=== PATIENT | female | born 1930 | race Hispanic/Latino ===

== ENCOUNTER 2016-08-21 10:12 | Inpatient (IN) | payer MEDICARE, BC ==
--- NOTE | 2016-08-21 10:49 | ERNOTE ---
Medical Problem HPI - General Chief Complaint: Fever Time Seen by Provider: 08/21/16 10:41 Source: [facility] notes reviewed, [facility] Exam Limitations: physical impairment, dementia - Immun/Allergies/Home Medications Immunizations: IMMUNIZATION HX Immunizations Up to Date Yes History of Influenza Vaccine No Hx Pneumococcal Vaccination No Allergies/Adverse Reactions: Allergies No Known Allergies Allergy (Verified 08/21/16 10:18) Home Medications: HOME MEDICATIONS Atropine Sulfate [Atropine 1% Ophthalmic Solution] 4 drop SL Q4H PRN 05/20/13 [ Last Taken 08/21/16] Divalproex Sodium [Depakote] 500 mg PO DAILY 05/20/13 [Last Taken 08/21/16] Phenytoin [Dilantin Suspension] 125 mg PO BID 05/20/13 [Last Taken 08/21/16] Quetiapine Fumarate [Seroquel] 12.5 mg PO HS 05/20/13 [Last Taken 08/21/16] Spironolactone 25 mg PO BID 05/20/13 [Last Taken 08/21/16] Atropine Sulfate [Atropine 1% Ophthalmic Solution] 4 drop SL AC 02/03/16 [Last Taken 08/21/16] Acetaminophen [Tylenol] 500 mg PO Q6H PRN 08/21/16 [Last Taken 08/21/16] Aspirin [Aspirin EC] 81 mg PO DAILY 08/21/16 [Last Taken 08/21/16] Omeprazole [Prilosec] 20 mg PO DAILY 08/21/16 [Last Taken 08/21/16] Simvastatin 20 mg PO DAILY 08/21/16 [Last Taken 08/21/16] Ursodiol [Actigall] 300 mg PO BID 08/21/16 [Last Taken 08/21/16] - History of Present History Narrative: snf reports the patient has increased tempurature with fever of 102.3 last night. Increased lung sounds Timing: getting worse Severity: moderate Review of Systems - Narrative Narrative: Pt non-verbal no additional information available - Patient's Past Medical History Patient History - Medical: Alzheimer's Disease, Dementia, Seizures, Other Patient History - Cardiac/Respiratory: CVA/Stroke, Hypertension, Hyperlipidemia , Pneumonia, TIA Patient History - Cancer: No Hx of Cancer Patient History - Surgical Procedures: No surgical history Patient History - Other: None - Family History Unknown Family History - Medical: History Unknown - Social History [facility] Situations: [facility] Abuse History: No History of abuse Psych History: No pertinent hx Alcohol Use: none Drug Use: none - Immunizations Immunizations Up to Date: Yes Hx Pneumococcal Vaccination: No History of Influenza Vaccine: No Physical Exam - Physical Exam General Appearance: Present: wd/wn, alert - but non verbal Eye Exam: Normal inspection: bilateral Ears, Nose, Throat: Present: other Respiratory: Present: no respiratory distress, rales, rhonchi - a lot of upper airway sounds due to difficulty handling secretions (chronic) Cardiovascular/Chest: Present: regular rate, rhythm, no murmur, normal peripheral pulses Gastrointestinal/Abdominal: Present: normal bowel sounds, nontender, nondistended, soft Extremity Exam: Present: normal inspection, no edema Neurological Exam: Present: alert - but non verbal Skin Exam: Present: normal color, warm/dry ED Progress - Results and Orders Patient's Lab Results:: I have reviewed the patient's lab results. Results and Orders: Laboratory Tests 08/21/16 08/21/16 08/21/16 11:00 11:00 11:00 WBC 50.8 H Hgb 10.9 L Hct 31.5 L Plt Count 452 H Sodium 130 L Potassium 4.0 Chloride 96 L Carbon Dioxide 18.7 L Anion Gap 19.3 H BUN 14 Creatinine 1.22 Random Glucose 258 H Lactic Acid, Venous 6.4 H* Calcium 8.3 Calcium Adj for Albumin 9.4 Total Bilirubin 1.0 AST 53 H ALT 58 Alkaline Phosphatase 508 H Total Protein 6.6 Albumin 2.2 L - Vital Signs Patient's Vital Signs:: I have reviewed the patient's vital signs. Vital Signs: Vital Signs 08/21/16 10:13 Temperature 36.6 C Pulse Rate 117 H Respiratory 34 H Rate Blood Pressure 119/71 O2 Sat by Pulse 96 Oximetry - X-Ray X-Ray #1 X-Ray: chest Interpretation: Reviewed by me X-ray Comments: Heart size and vascularity appear within normal limits. Lung [place] show no focal infiltrates or effusions. There are atherosclerotic calcifications. - Progress/Reassessment Chief Complaint: Fever Progress Note-Subjective: 08/21/16 12:25 Pathologist report of peripheral smear: Marked leukocytosis with left shift. Favor leukemoid reaction but myeloproliferative disorder should be ruled out if leukocytosis is not resolved after treatment of infectious processes. Departure - Departure Clinical Impression: Sepsis secondary to UTI UTI (urinary tract infection) Qualifiers: Urinary tract infection type: acute cystitis Hematuria presence: with hematuria Qualified Code(s): N30.01 - Acute cystitis with hematuria Disposition: [facility] Condition: Fair
[2016-08-21 11:07] LABS: Hematocrit 31.5 % (37.0-47.0); Hemoglobin 10.9 gm/dL (12.5-16.0); Mean Cell Volume 94.9 fl (78-100); Mean Corpuscular Hemoglobin 32.8 pg (27-31); Mean Corpuscular Hgb Conc 34.6 g/dl (32-36); Mean Platelet Volume 8.9 fl (6.0-9.5); Platelet Count 452 K/mm3 (150-450); Red Blood Count 3.32 M/mm3 (4.2-5.4); Red Cell Distribution Width 12.4 % (11.5-14.0); White Blood Count 50.8 K/mm3 (4.0-10.5)
[2016-08-21 11:09] LABS: Total Cells Counted 100
--- OUTSIDE RECORDS SUMMARY | 2016-08-21 11:09 | XMS REPORT | Continuity of Care Document ---
:1930 Author Organization [facility] ([facility]) Address [address] [place] [address] Phone [phone] Care Team Providers Name Role Phone Estevan Luz Primary Care Provider [phone] Source Comments This disclosure is being made pursuant to the Care Everywhere program, applicable federal and state laws, and may not contain all informaitonavailable regarding this patient.[facility] ([facility]) Active Allergies and Adverse Reactions No Known Allergies Current Medications Prescription Sig. Disp. Refills Start Date End Date Status QUEtiapine (SEROQUEL) Take 12.5 mg by Active 25 mg tablet mouth at bedtime. omeprazole (PRILOSEC) Take 20 mg by Active 20 mg extended release mouth daily. capsule spironolactone Take 25 mg by Active (ALDACTONE) 25 mg mouth 2 times tablet daily. simvastatin (ZOCOR) 20 Take 20 mg by Active mg tablet mouth at bedtime. aspirin 81 mg EC tablet Take 81 mg by Active mouth daily. divalproex 125 mg Take 500 mg by Active sprinkle capsule mouth daily. atropine 1 % ophthalmic Place 4 Drops Active solution under the tongue 3 times daily. phenytoin 25 mg/mL Take 125 mg by Active suspension mouth 2 times daily. acetaminophen 500 mg Take 500 mg by Active tablet mouth every 6 hours as needed for Fever. ursodiol 300 mg capsule Take 1 capsule 60 capsule 11 07/03/2016 Active (300 mg total) by mouth 2 times daily. Active Problems Patient Care Coordination Note GOALS OF CARE AND TREATMENT PREFERENCES Diagnosis: sepsis Prognosis: Unknown at this time, critically ill Goal(s) of Care: comfort and relief of symptoms and live longer Is the patient an inpatient? Yes. How did the team arrive at the current code status? 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 09/08/2013 Essential hypertension 09/08/2013 Abnormal liver function tests 09/08/2013 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 S/P total hysterectomy and BSO (bilateral salpingo-oophorectomy) 09/08/2013 Overview: 1972 S/P ERCP 09/08/2013 Overview: Mar 2010; October 2010; May 2013 Elevated LFTs 10/25/2010 Resolved Problems Problem Noted Date Resolved Date Hypokalemia 05/23/2013 05/25/2013 Cholangitis 05/22/2013 05/25/2013 UTI (urinary tract infection) 05/21/2013 05/25/2013 Bacteremia 05/21/2013 05/25/2013 Sepsis(995.91) 05/21/2013 05/25/2013 Most Recent Encounters Date Type Specialty Providers Description 07/13/2016 Orders/Notes Med GI/Hepatology Kenneth White Dx: Elevated LFTs MD Kang (Primary Dx) 07/03/2016 Office Visit Med GI/Hepatology Kenneth White Dx: Gallstones MD Kang (Primary Dx) 07/02/2016 Orders/Notes Med GI/Hepatology Kenneth White Dx: Elevated LFTs MD Kagn (Primary Dx) 06/29/2016 Telephone Med GI/Hepatology Randi Giordano Chief Comp: Scheduling 06/27/2016 Telephone Med GI/Hepatology Kenneth White Chief Comp: Follow-up MD Kang Social History Tobacco Use Types Packs/Day Years Used Date Never Smoker Smokeless Tobacco: Never Used Alcohol Use Drinks/Week oz/Week Comments No Last Filed Vital Signs Vital Sign Reading Time Taken Blood Pressure 152/65 07/03/2016 10:13 AM 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 Pulse 64 07/03/2016 10:13 AM 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 Temperature 36.2 C (97.2 F) 07/03/2016 10:13 AM 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 Respiratory Rate 20 05/25/2013 12:00 PM 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 Height 1.575 m (5' 2") 07/03/2016 10:13 AM 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 Weight 67.132 kg (148 lb) 09/08/2013 3:45 PM CDT Body Mass Index 27.06 09/08/2013 3:45 PM CDT Oxygen Saturation 98% 05/25/2013 8:07 AM 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 Plan of Care Health Maintenance Due Date Last Done Comments Hepatitis B Vaccine (1 of 3 - Primary Series) 1930 Tdap Vaccine 01/07/1939 Lipid Disorder Screening 01/07/1946 Td Vaccine 01/07/1946 Zoster Vaccine 1988 Pneumococcal Vaccine (1 of 2 - PCV13) 01/07/1993 Influenza Vaccine: Seasonal (#1) 01/02/2016 Results from Last 3 Months DIFFERENTIAL (07/03/2016 9:50 AM) Component Value Range % Neutrophils-Auto Diff 73.8 % Neutrophils-Auto Diff 5910 4126-6769 /MM3 % Lymphocytes-Auto Diff 10.5 % Lymphocytes-Auto Diff 840(L) 875-3300 /MM3 % Monocytes-Auto Diff 13.3 % Monocytes-Auto Diff 1070(H) 130-860 /MM3 % Eosinophils-Auto Diff 2.0 % Eosinophils-Auto Diff 160 40-390 /MM3 % Basophils 0.2 % Basophils-Auto Diff 20 10-136 /MM3 % Immature Granulocytes-Auto Diff 0.2 % Immature Granulocytes-Auto Diff 20 /MM3 Specimen Whole Blood CBC (COMPLETE BLOOD COUNT) (07/03/2016 9:50 AM) Component Value Range WBC Count 8.0 3.7-10.5 K/MM3 RBC Count 4.14 4.00-5.20 M/MM3 Hemoglobin 13.1 11.9-15.5 g/dL Hematocrit 39 35-47 % MCV (Mean Corpuscular Volume) 94 82-99 FL MCH (Mean Corpuscular Hemoglobin) 32 25-35 PG MCHC (Mean Corpuscular Hemoglobin Concentration) 34 32-36 % Platelet Count 303 150-400 K/MM3 MPV (Mean Platelet Volume) 9.1(L) 9.4-12.3 FL RBC Dist Width-STD 43.9 36.4-46.3 FL RBC Distrib Width 12.9 9.0-14.5 % Nucleated RBC 0 /100 WBC Specimen Whole Blood GAMMA GLUTAMYLTRANSPEPTIDASE (07/03/2016 9:50 AM) Component Value Range GGT 541(H) 5-36 U/L Specimen Blood HEPATIC FUNCTION PANEL (07/03/2016 9:50 AM) Component Value Range Albumin 3.2(L) 3.4-4.8 g/dL ALP 193(H) 35-104 U/L Bilirubin Total 0.2 <=1.2 mg/dL Bilirubin, Direct <0.2 0.0-0.2 mg/dL AST 22Comment: 0-32 U/L Adult reference ranges updated on 04/28/13 at 830am ALT 23Comment: 0-33 U/L The upper limit of normal for alanine aminotransferase (ALT) reference ranges for adults is controversial with some authorities recommending limit as low as 30 U/L for males and 19 U/L for females. Th ere is increased incidence of subclinical liver disease (e.g., early steatohepatitis) in patients with ALT values in the range of 31-41 U/L for males and 20-33 U/L for females. ALT values should alway s be interpreted in conjunction with clinical history, physical examination findings, and, if applicable, data from other diagnostic tests. Total Protein 6.7 6.0-8.0 g/dL Specimen Blood CBC WITH DIFFERENTIAL (07/03/2016 9:50 AM) Specimen Whole Blood Narrative The following orders were created for panel order CBC WITH DIFFERENTIAL. Procedure Abnormality Status --------- ------ CBC (COMPLETE BLOOD COUNT)[[id number]] AbnormalFinal result DIFFERENTIAL[[id number]] AbnormalFinal result Please view results for these tests on the individual orders.
[2016-08-21 11:21] LABS: Band 38 % (0-2.0); Immature Granulocyte 6 (0-1); Lymphocyte 3 % (20-51); Monocyte 2 % (0-9); Neutrophil 51 % (42-75); Neutrophil # 25.9 K/mm3 (1.3-6.0)
[2016-08-21 11:22] LABS: Dohle Bodies 2+; Macrocytosis 2+; Platelet Estimate Normal (NORMAL); Toxic Granulation 1+
[2016-08-21 11:26] LABS: Albumin * 2.2 gm/dl (3.4-5.0); Anion Gap 19.3 mmol/L (6.8-13.8); BUN/Creatinine Ratio 11.5 (9.0-21.6); Ca. Corrected For Albumin 9.4 mg/dL (8.4-10.2); Calcium * 8.3 mg/dL (7.9-10.9); Carbon Dioxide 18.7 mmol/L (24-32.6); Total Protein 6.6 gm/dL (6.2-8.2)
[2016-08-21] MEDS: NORMAL SALINE 1,000 ML IV PRN ×3 (12:10→15:24)
--- NOTE | 2016-08-21 12:13 | PATHPSR ---
PHYSICIAN: Kishore Forrester DO LAB#: [id number] SPECIMEN DATE: 08/21/2016 CLINICAL INFORMATION: The patient is an 86-year-old woman [place] resident who presented with fever to emergency room. The patient institutionalized due to multi-infarct dementia versus Alzheimer disease. She has a history of bile duct encasement and is being seen at [facility] last visit 07/03/2016, recurrent pneumonia and history of inflammatory polyp of the ampulla Vater. Peripheral smear is performed due to elevated WBC. WBC was 5.7 K/mm3 on 07/23/2016 and is elevated to 50.8 K/mm3. CBC: WBC 50.8 K/mm3, hemoglobin 10.9 gm/dl, hematocrit 31.5 %, MCV is 94.9 fl, MCH is 32.8 pg, MCHC is 34.6 g/dl, Platelet count 452,000. Manual differential: Neutrophils 51 %, bands 38 %, lymphocytes 3 %, monocytes 2 %, immature granulocytes 6 %. RED BLOOD CELLS: 2+ macrocytosis PLATELETS: Platelet clumping WHITE BLOOD CELLS: 2+ toxic vacuolization 1+ toxic granulation 2+ dohle bodies DIAGNOSIS: PERIPHERAL BLOOD SMEAR, REVIEW BY PATHOLOGIST: -MARKED LEUKOCYTOSIS WITH LEFT SHIFT OF GRANULOCYTIC SERIES, SEE COMMENT COMMENT: In view of the clinical history and peripheral smear findings a leukemoid reaction is favored. However if the marked leukocytosis and granulocytosis persists following treatment for an infectious etiology ( elevated procalcitonin 17.45 ng/ml and UTI) further evaluation to exclude a myeloproliferative disorder is suggested. The findings are called to Dr. Forrester on 08/21/2016.
[2016-08-21 12:38] LABS: Urine Bilirubin 3 mg/dl (NEGATIVE); Urine Blood 50 /ul (NEGATIVE); Urine Ketone 5 mg/dL (NEGATIVE); Urine Protein 100 mg/dL (NEGATIVE); Urine Specific Gravity 1.025 SP.GR. (1.005-1.010); Urine Urobilinogen 4 EU/dl (NORMAL); Urine pH 5.5 pH (5.0-7.0)
[2016-08-21 12:46] LABS: Urine Appearance Cloudy; Urine Color Dark Yellow; Urine Nitrite Positive (NEGATIVE)
[2016-08-21 12:47] LABS: Urine Bacteria 3+; Urine Mucus Few - 1+; Urine Renal Epithelial Cell Many - 3+ /hpf
[2016-08-21] MEDS ORDERED: NOREPINEPHRINE BITARTRATE 4 MG in DEXTROSE 5 % IN WATER 496 ML IV PRN ×2 (14:16)
[2016-08-21] MEDS ORDERED: ACETAMINOPHEN 650 MG SUPP.RECT RC PRN (14:28)
[2016-08-21] MEDS ORDERED: SODIUM CHLORIDE IV SCH ×2 (14:30→14:45)
[2016-08-21] MEDS ORDERED: ATROPINE SULFATE 150 DROP BTL SL PRN (14:32)
[2016-08-21] MEDS ORDERED: hydrALAZINE HCL 20 MG/ML VIAL IV PRN (14:44)
[2016-08-21] MEDS ORDERED: METRONIDAZOLE IV SCH (14:45)
[2016-08-21] MEDS ORDERED: ENOXAPARIN SODIUM 40 MG/0.4 ML SYRG SC SCH (15:00)
[2016-08-21] MEDS ORDERED: DEXTROSE 5% IV SCH ×2 (15:30)
[2016-08-21] MEDS ORDERED: NORMAL SALINE IV SCH (15:30)
[2016-08-21] MEDS ORDERED: PHENYTOIN SODIUM IV SCH (15:30)
[2016-08-21] MEDS ORDERED: VALPROIC ACID IV SCH ×2 (15:30)
[2016-08-21] MEDS ORDERED: WATER IV SCH ×2 (15:30)
[2016-08-21] MEDS ORDERED: LEVOFLOXACIN/D5W 750 MG in Premix Bag 1 BAG IV SCH ×2 (15:45→16:15)
[2016-08-21] MEDS ORDERED: PANTOPRAZOLE SODIUM 40 MG in NORMAL SALINE 100 ML IV SCH (16:00)
[2016-08-21] MEDS: MEROPENEM 1 GM in NORMAL SALINE 100 ML IV SCH (17:05)
[2016-08-21] MEDS: ATROPINE SULFATE 150 DROP BTL SL SCH (17:11)
[2016-08-21] MEDS: PHENYTOIN SODIUM IV SCH (17:39)
[2016-08-21] MEDS: NORMAL SALINE IV SCH (17:39)
[2016-08-21] MEDS: WATER IV SCH ×2 (18:21)
[2016-08-21] MEDS: VALPROIC ACID IV SCH ×2 (18:21)
[2016-08-21] MEDS: DEXTROSE 5% IV SCH ×2 (18:21)
[2016-08-21 19:26] LABS: Venous Blood Gas HCO3 20.4 mmol/L (22.0-29.0); Venous Blood Gas pH 7.41 (7.32-7.43)
--- NOTE | 2016-08-21 19:59 | HP ---
Chief Complaint - Chief Complaint Date of Service: 08/21/16 Time of Service: 14:05 Chief Complaint: fever History of Present Illness: Bhavana is an 86 year old female who presented to the ER from the [facility] with a fever overnight of 102.3 and "increased lung sounds". pt is non-verbal and has been for the past 10 years. PMH is significant for alzheimer's disease, seizures, cva, hypertension, hyperlipidemia, pneumonia, tia. Patient has a chronic history of difficulty handling her oral secretions and has been admitted for aspiration pneumonia in the past. No family is available during patient assessment. I called Prakash Bullock (MARILIN) after patient assessment and updated him on patient's condition. I also verified code status with him and he informed me over the phone that he did want "a tube down her throat and a machine to help her breathe" if she develops respiratory failure and "chest compressions" if her heart stops beating. I also made sure Prakash understood that even if she is made a DNR we could continue to treat her infection. Prakash verbalized his understanding but again indicated that he wished for her to remain a full code. Patient has dysphagis at baseline and is on a pureed diet at the [place]. Work up in the emergency room revealed marked leukocytosis with wbc at 50,000 with 38 bands, lactic acidosis at 6.4 with procalcitonin at 17.45. UA consistent with infection. chest xray showed no acute abnormalities. iv rocephin was given in the ER. peripheral blood smear showed 2+macrocytosis, platelet clumping, marked leukocytosis with left shift of granulocytic series, which pathologist believes is a leukemoid reaction but need to rule out chronic myeloid leukemia. - Patient's Past Medical History Patient History - Medical: Alzheimer's Disease, Dementia, Seizures Patient History - Cardiac/Respiratory: CVA/Stroke, Hypertension, Hyperlipidemia , Pneumonia, TIA Patient History - Cancer: No Hx of Cancer Patient History - Surgical Procedures: No surgical history Patient History - Other: None LMP (females 10-50): Menopausal - Family History Unknown Family History - Medical: History Unknown - Social History Living Situations: assisted Abuse History: No History of abuse Psych History: No pertinent hx Smoking Status: Never smoker Have you smoked in the past 12 months: No Alcohol Use: none Drug Use: none - Immunizations Immunizations Up to Date: Yes Hx Pneumococcal Vaccination: No History of Influenza Vaccine: No Review Of Systems (GEN) - Review of Systems Additional Comments: unable to obtain ROS due to patient's condition. Immunizations: IMMUNIZATION HX Immunizations Up to Date Yes History of Influenza Vaccine No Hx Pneumococcal Vaccination No Allergies/Adverse Reactions: Allergies Allergy/AdvReac Type Severity Reaction Status Date / Time No Known Allergies Allergy Verified 08/21/16 10:18 Home Medications: HOME MEDICATIONS Atropine Sulfate [Atropine 1% Ophthalmic Solution] 4 drop SL Q4H PRN 05/20/13 [ Last Taken 08/21/16] Divalproex Sodium [Depakote] 500 mg PO DAILY 05/20/13 [Last Taken 08/21/16] Phenytoin [Dilantin Suspension] 125 mg PO BID 05/20/13 [Last Taken 08/21/16] Quetiapine Fumarate [Seroquel] 12.5 mg PO HS 05/20/13 [Last Taken 08/21/16] Spironolactone 25 mg PO BID 05/20/13 [Last Taken 08/21/16] Atropine Sulfate [Atropine 1% Ophthalmic Solution] 4 drop SL AC 02/03/16 [Last Taken 08/21/16] Acetaminophen [Tylenol] 500 mg PO Q6H PRN 08/21/16 [Last Taken 08/21/16] Aspirin [Aspirin EC] 81 mg PO DAILY 08/21/16 [Last Taken 08/21/16] Omeprazole [Prilosec] 20 mg PO DAILY 08/21/16 [Last Taken 08/21/16] Simvastatin 20 mg PO DAILY 08/21/16 [Last Taken 08/21/16] Ursodiol [Actigall] 300 mg PO BID 08/21/16 [Last Taken 08/21/16] Exam - Exam Vital Signs: Vital Signs - Last Taken Temp 36.8 C 08/21/16 17:22 Pulse 97 08/21/16 18:03 Resp 24 H 08/21/16 17:22 BP 182/84 08/21/16 17:22 Pulse Ox 97 08/21/16 17:22 Constitutional: Present: Moderate distress, Obtunded, Other - unresponsive until arms are extended, at that point pt opens eyes only. non-verbal., Elderly ENT Exam: Present: moist mucous membranes, other - gurgling sounds coming from the mouth, patient drooling out the right side of the mouth Eye Exam: bilateral eye: normal inspection Neck: Present: supple Breasts: Present: Exam deferred Respiratory: Present: chest non-tender, respiratory distress - mild to moderate , rales, rhonchi Cardiovascular/Chest: Present: regular rate, rhythm, no chest tenderness, no JVD , no murmur, tachycardia, edema - +1 lower extremity edema. Peripheral Pulses: carotid (R): 2+, carotid (L): 2+, dorsalis-pedis (R): 2+, dorsalis-pedis (L): 2+, radial (R): 2+, radial (L): 2+ Abdomen: Present: Normal bowel sounds, soft, nontender, nondistended /Rectal: Present: Exam deferred Extremity: Present: lower extremity edema - +1 pitting edema bilat, other - bilat upper extremity stiff flexion - pain with upper arm extension bilat. Skin Exam: Present: warm/dry, no cyanosis, pallor Neurologic: Present: aphasia, other - non-verbal, opens eyes to pain only. Diagnostic Studies: Abnormal Lab Results 08/21/16 08/21/16 08/21/16 Range/Units 13:28 19:21 19:21 pO2 40.7 H (23.3-35.1) mmHg HCO3 20.4 L (22.0-29.0) mmol/L Total CO2 21.4 L (22.0-26.0) mmol/L Base Excess -3.3 L (-2.0-3.0) mmol/L VBG O2 Saturation 77.0 L (94.0-98.0) % Lactic Acid, Venous 5.4 H* 3.8 H* (0.4-2.0) mmol/L Laboratory Results WBC 50.8 K/mm3 (4.0-10.5) H 08/21/16 11:00 RBC 3.32 M/mm3 (4.2-5.4) L 08/21/16 11:00 Hgb 10.9 gm/dL (12.5-16.0) L 08/21/16 11:00 Hct 31.5 % (37.0-47.0) L 08/21/16 11:00 MCV 94.9 fl (78-100) 08/21/16 11:00 MCH 32.8 pg (27-31) H 08/21/16 11:00 MCHC 34.6 g/dl (32-36) 08/21/16 11:00 RDW 12.4 % (11.5-14.0) 08/21/16 11:00 Plt Count 452 K/mm3 (150-450) H 08/21/16 11:00 MPV 8.9 fl (6.0-9.5) 08/21/16 11:00 Neutrophils % (Manual) 51 % (42-75) 08/21/16 11:00 Band Neuts % (Manual) 38 % (0-2.0) H 08/21/16 11:00 Lymphocytes % (Manual) 3 % (20-51) L 08/21/16 11:00 Monocytes % (Manual) 2 % (0-9) 08/21/16 11:00 Immature Granulocytes 6 (0-1) H 08/21/16 11:00 Neutrophils # (Manual) 25.9 K/mm3 (1.3-6.0) H 08/21/16 11:00 Lymphocytes # (Manual) 1.5 k/mm3 (1.5-3.5) 08/21/16 11:00 Monocytes # (Manual) 1.0 k/mm3 (0.0-1.0) 08/21/16 11:00 Toxic Granulation 1+ 08/21/16 11:00 Toxic Vacuolation 2+ 08/21/16 11:00 Dohle Bodies 2+ 08/21/16 11:00 Platelet Estimate Normal (NORMAL) 08/21/16 11:00 Macrocytosis 2+ 08/21/16 11:00 Peripheral Blood Smear Smear sent to path. 08/21/16 11:31 Absolute Retic 0.7100 08/21/16 11:31 Percent Retic 2.3 % (0.4-1.8) H 08/21/16 11:31 Immature Retic Fraction 16.9 % (3.0-15.9) H 08/21/16 11:31 Retic Hgb Content 40.2 pg (29-35) H 08/21/16 11:31 pCO2 33.2 mmHg (32.0-45.0) 08/21/16 19:21 pO2 40.7 mmHg (23.3-35.1) H 08/21/16 19:21 HCO3 20.4 mmol/L (22.0-29.0) L 08/21/16 19:21 Total CO2 21.4 mmol/L (22.0-26.0) L 08/21/16 19:21 Base Excess -3.3 mmol/L (-2.0-3.0) L 08/21/16 19:21 ABG pH 7.41 (7.32-7.43) 08/21/16 19: VBG O2 Saturation 77.0 % (94.0-98.0) L 08/21/16 19:21 Sodium 130 mmol/L (132-142) L 08/21/16 11:00 Plasma Sodium 133 mmol/L (130-142) 08/21/16 11:00 Potassium 4.0 mmol/L (3.4-4.6) 08/21/16 11:00 Chloride 96 mmol/L (97-106) L 08/21/16 11:00 Carbon Dioxide 18.7 mmol/L (24-32.6) L 08/21/16 11:00 Anion Gap 19.3 mmol/L (6.8-13.8) H 08/21/16 11:00 BUN 14 mg/dL (3-23) 08/21/16 11:00 Creatinine 1.22 mg/dL (0.4-1.4) 08/21/16 11:00 Est GFR (Non-Af Amer) 44 mL/min (60-130) L D 08/21/16 11:00 BUN/Creatinine Ratio 11.5 (9.0-21.6) 08/21/16 11:00 Random Glucose 258 mg/dL (70-110) H 08/21/16 11:00 Lactic Acid, Venous 3.8 mmol/L (0.4-2.0) H* 08/21/16 19: Calcium 8.3 mg/dL (7.9-10.9) 08/21/16 11:00 Calcium Adj for Albumin 9.4 mg/dL (8.4-10.2) 08/21/16 11:00 Total Bilirubin 1.0 mg/dL (0.0-1.1) 08/21/16 11:00 AST 53 U/L (0-48) H 08/21/16 11:00 ALT 58 U/L (19-67) 08/21/16 11:00 Alkaline Phosphatase 508 U/L (50-170) H 08/21/16 11:00 Total Protein 6.6 gm/dL (6.2-8.2) 08/21/16 11:00 Albumin 2.2 gm/dl (3.4-5.0) L 08/21/16 11:00 Procalcitonin 17.45 ng/mL (0.05-0.50) H 08/21/16 11:00 Urine Color Dark yellow 08/21/16 12:32 Urine Appearance Cloudy 08/21/16 12:32 Urine pH 5.5 pH (5.0-7.0) 08/21/16 12:32 Ur Specific Marlin 1.025 SP.GR. (1.005-1.010) 08/21/16 12:32 Urine Protein 100 mg/dL (NEGATIVE) H 08/21/16 12:32 Urine Glucose (UA) 100 mg/dL (NEGATIVE) H 08/21/16 12:32 Urine Ketones 5 mg/dL (NEGATIVE) 08/21/16 12:32 Urine Blood 50 /ul (NEGATIVE) H 08/21/16 12:32 Urine Nitrate Positive (NEGATIVE) H 08/21/16 12:32 Urine Bilirubin 3 mg/dl (NEGATIVE) H 08/21/16 12:32 Urine Ictotest Positive (NEGATIVE) H 08/21/16 12:32 Prot Sulfosalicylic Acd 4+ mg/dL (0) H 08/21/16 12:32 Urine Urobilinogen 4 EU/dl (NORMAL) H 08/21/16 12:32 Ur Leukocyte Esterase 25 /ul (NEGATIVE) H 08/21/16 12:32 Urine RBC 10-25 /hpf (0-5) H 08/21/16 12:32 Urine WBC 5-10 /hpf (0-5) H 08/21/16 12:32 Ur Epithelial Cells 0-5 /hpf (0-5) 08/21/16 12:32 Ur Renal Epithelial Cell Many - 3+ /hpf (NONE) H 08/21/16 12:32 Urine Bacteria 3+ (NONE) H 08/21/16 12:32 Coarse Granular Casts 5-10 /LPF (NONE) H 08/21/16 12:32 WBC Casts 5-10 /LPF (NONE) H 08/21/16 12:32 Urine Mucus Few - 1+ (NONE) H 08/21/16 12:32 Urine Culture Comments Culture to follow 08/21/16 12:32 Assessment/Plan - Narrative Narrative: 86 year old female admitted with severe sepsis. Sepsis - admit to med-surg. inpatient status. - watch BPs. PRN levophed if SBP <100 - will need SCU if this happens. - IVF resusitation at 30 ml/kg. check ultrasound of the chest to look at IVC and see if flat, normal or distended. - Possible causes: UTI. given marked leukocytosis, blood culture will also likely turn positive as well. also suspect aspiration pneumonia given pt's dysphagia and severe aspiration risk. - blood and urine cultures are pending. sputum cultures are pending. given how critically ill the patient is, the need to monitor accurate I/Os and since pt is non-mobile, incontinent and to protect the skin - an order was placed for a go catheter. - pt started on iv meropenum and iv levaquin. Aspiration pneumonia -suspected. - recheck chest xray in am. - aspiration precautions. - consult speech therapy. - pt started on iv meropenum and iv levaquin. Intravascular Volume Depletion - Secondary to extrarenal losses, ie fever, and decrease oral intake. has been aggressively hydrated in the ER. continue iv hydration per sepsis protocol. recheck chest ultrasound in am to check IVC to monitor fluid status. watch I/Os closely. Hyperglycemia -likely secondary to sepsis, add sliding scale. check blood sugars q 6 hours. leukemoid reaction / bandemia / leukocytosis - likely from multiple sources of infection, including UTI, suspected aspiration pneumonia, and suspected bacteremia. If wbc still elevated after infection resolved, myeloproliferative disorder should be ruled out. - continue IV levaquin and IV meropenum. dysphagia - chronic in nature but puts patient at high aspiration risk. - consult speech therapy for recommendations. - NPO - hold oral meds as patient appears to be aspirating her own secretions currently. - transition any oral home meds to iv / rc as able. gi prophylaxis: IV protonix VTE: lovenox code status: full code. - Assessment/Plan (1) Severe sepsis Problem: Acute (2) Hypertension Problem: Chronic Qualifiers: Hypertension type: essential hypertension Qualified Code(s): I10 - Essential (primary) hypertension (3) Leukemoid reaction Problem: Acute (4) Bandemia Problem: Acute (5) Intravascular volume depletion Problem: Acute (6) Elevated serum glucose with glucosuria Problem: Acute (7) UTI (urinary tract infection) Problem: Acute Qualifiers: Urinary tract infection type: acute cystitis Hematuria presence: with hematuria Qualified Code(s): N30.01 - Acute cystitis with hematuria (8) Fever Problem: Acute Qualifiers: Fever type: unspecified Qualified Code(s): R50.9 - Fever, unspecified (9) Hyperglycemia Problem: Acute (10) Leukocytosis Problem: Acute Qualifiers: Leukocytosis type: lymphocytosis Qualified Code(s): D72.820 - Lymphocytosis (symptomatic) (11) Status post CVA Problem: Chronic (12) Seizure disorder Problem: Chronic (13) Aspiration pneumonia Problem: Suspected Qualifiers: Aspiration pneumonia type: unspecified Laterality: unspecified laterality Lung location: unspecified part of lung Qualified Code(s): J69.0 - Pneumonitis due to inhalation of food and vomit (14) Dysphagia Problem: Chronic Qualifiers: Dysphagia type: unspecified Qualified Code(s): R13.10 - Dysphagia, unspecified
[2016-08-21] MEDS: URSODIOL 300 MG CAPSULE PO SCH (20:05)
[2016-08-21] MEDS: SPIRONOLACTONE 25 MG TABLET PO SCH (20:05)
[2016-08-21] MEDS: QUEtiapine FUMARATE 25 MG TABLET PO SCH (20:05)
[2016-08-21] MEDS: PANTOPRAZOLE SODIUM 40 MG in NORMAL SALINE 100 ML IV SCH (20:05)
[2016-08-21] MEDS: LEVOFLOXACIN IV SCH (20:30)
[2016-08-21] MEDS: D5W IV SCH (20:30)
[2016-08-21] MEDS ORDERED: PHENYTOIN 125 MG/5 ML PO SCH (21:00)
[2016-08-22] MEDS: PHENYTOIN SODIUM IV SCH ×4 (00:25→23:53)
[2016-08-22] MEDS: NORMAL SALINE IV SCH ×4 (00:25→23:53)
[2016-08-22] MEDS: MEROPENEM 1 GM in NORMAL SALINE 100 ML IV SCH ×3 (01:00→21:01)
[2016-08-22] MEDS: WATER IV SCH ×4 (05:35→18:48)
[2016-08-22] MEDS: DEXTROSE 5% IV SCH ×4 (05:35→18:48)
[2016-08-22] MEDS: VALPROIC ACID IV SCH ×4 (05:35→18:48)
[2016-08-22] MEDS: NORMAL SALINE 1,000 ML IV PRN ×2 (05:46→14:54)
[2016-08-22 06:15] LABS: Hematocrit 28.1 % (37.0-47.0); Hemoglobin 9.5 gm/dL (12.5-16.0); Mean Cell Volume 96.2 fl (78-100); Mean Corpuscular Hemoglobin 32.5 pg (27-31); Mean Corpuscular Hgb Conc 33.8 g/dl (32-36); Mean Platelet Volume 9.5 fl (6.0-9.5); Platelet Count 345 K/mm3 (150-450); Red Blood Count 2.92 M/mm3 (4.2-5.4); Red Cell Distribution Width 12.6 % (11.5-14.0); White Blood Count 30.9 K/mm3 (4.0-10.5)
[2016-08-22 06:18] LABS: Total Cells Counted 100
[2016-08-22 06:35] LABS: Albumin * 1.9 gm/dl (3.4-5.0); Anion Gap 15.4 mmol/L (6.8-13.8); Bilirubin, Total 0.6 mg/dL (0.0-1.1); Calcium * 7.6 mg/dL (7.9-10.9); Carbon Dioxide 21.9 mmol/L (24-32.6); Potassium 3.3 mmol/L (3.4-4.6); Total Protein 5.9 gm/dL (6.2-8.2)
[2016-08-22 06:36] LABS: Atypical (Reactive) Lymph 1 % (0-2); Band 7 % (0-2.0); Lymphocyte 4 % (20-51); Monocyte 5 % (0-9); Neutrophil 83 % (42-75); Neutrophil # 25.6 K/mm3 (1.3-6.0); Platelet Estimate Normal (NORMAL)
[2016-08-22 06:37] LABS: Dohle Bodies 1+; Macrocytosis 2+
[2016-08-22 06:43] LABS: BUN/Creatinine Ratio 23.4 (9.0-21.6)
[2016-08-22] MEDS: ATROPINE SULFATE 150 DROP BTL SL SCH ×3 (06:43→16:50)
[2016-08-22] MEDS: SPIRONOLACTONE 25 MG TABLET PO SCH ×2 (08:59→20:12)
[2016-08-22] MEDS: URSODIOL 300 MG CAPSULE PO SCH ×2 (08:59→20:12)
[2016-08-22] MEDS ORDERED: DIVALPROEX SODIUM 500 MG TABLET.DR PO SCH (09:00)
[2016-08-22] MEDS ORDERED: POTASSIUM CHLORIDE 100 ML IV ONE ×2 (10:30→11:30)
[2016-08-22] MEDS: INSULIN REGULAR, HUMAN 100 UNITS/ML VIAL SC SCH ×3 (11:11→20:12)
--- NOTE | 2016-08-22 12:47 | PN ---
Subjective - Date and Time Seen Date: 08/22/16 Time: 12:43 Subjective Narrative: Unable to talk therefore no complain Objective - Review of Systems Generalized/Overall Review: Reports: No Symptoms Reported EENTM: Reports: No Symptoms Reported Respiratory: Reports: No Symptoms Reported Cardiac: Reports: No Symptoms Reported Abdominal: Reports: No Symptoms Reported Genitourinary Symptoms: Reports: Incontinent Musculoskeletal Complaints: Reports: No Symptoms Reported Neurological: Reports: No Symptoms Reported - Vitals Vitals: Last Vital Signs Temp 36.8 C 08/22/16 11:32 Pulse 117 H 08/22/16 11:32 Resp 22 H 08/22/16 11:32 BP 154/96 08/22/16 11:32 Pulse Ox 97 08/22/16 11:32 - Abnormal Lab Findings Abnormal Lab Findings: Abnormal Lab Results 08/21/16 08/21/16 08/21/16 Range/Units 13:28 19:21 19:21 WBC (4.0-10.5) K/mm3 RBC (4.2-5.4) M/mm3 Hgb (12.5-16.0) gm/dL Hct (37.0-47.0) % MCH (27-31) pg Neutrophils % (Manual) (42-75) % Band Neuts % (Manual) (0-2.0) % Lymphocytes % (Manual) (20-51) % Neutrophils # (Manual) (1.3-6.0) K/mm3 Lymphocytes # (Manual) (1.5-3.5) k/mm3 Monocytes # (Manual) (0.0-1.0) k/mm3 pO2 40.7 H (23.3-35.1) mmHg HCO3 20.4 L (22.0-29.0) mmol/L Total CO2 21.4 L (22.0-26.0) mmol/L Base Excess -3.3 L (-2.0-3.0) mmol/L VBG O2 Saturation 77.0 L (94.0-98.0) % Potassium (3.4-4.6) mmol/L Carbon Dioxide (24-32.6) mmol/L Anion Gap (6.8-13.8) mmol/L BUN/Creatinine Ratio (9.0-21.6) Random Glucose (70-110) mg/dL Lactic Acid, Venous 5.4 H* 3.8 H* (0.4-2.0) mmol/L Calcium (7.9-10.9) mg/dL Alkaline Phosphatase (50-170) U/L Total Protein (6.2-8.2) gm/dL Albumin (3.4-5.0) gm/dl Procalcitonin (0.05-0.50) ng/mL 08/22/16 08/22/16 08/22/16 Range/Units 05:14 05:14 05:14 WBC 30.9 H D (4.0-10.5) K/mm3 RBC 2.92 L (4.2-5.4) M/mm3 Hgb 9.5 L (12.5-16.0) gm/dL Hct 28.1 L (37.0-47.0) % MCH 32.5 H (27-31) pg Neutrophils % (Manual) 83 H (42-75) % Band Neuts % (Manual) 7 H (0-2.0) % Lymphocytes % (Manual) 4 L (20-51) % Neutrophils # (Manual) 25.6 H (1.3-6.0) K/mm3 Lymphocytes # (Manual) 1.2 L (1.5-3.5) k/mm3 Monocytes # (Manual) 1.5 H (0.0-1.0) k/mm3 pO2 (23.3-35.1) mmHg HCO3 (22.0-29.0) mmol/L Total CO2 (22.0-26.0) mmol/L Base Excess (-2.0-3.0) mmol/L VBG O2 Saturation (94.0-98.0) % Potassium 3.3 L (3.4-4.6) mmol/L Carbon Dioxide 21.9 L (24-32.6) mmol/L Anion Gap 15.4 H (6.8-13.8) mmol/L BUN/Creatinine Ratio 23.4 H (9.0-21.6) Random Glucose 121 H D (70-110) mg/dL Lactic Acid, Venous (0.4-2.0) mmol/L Calcium 7.6 L (7.9-10.9) mg/dL Alkaline Phosphatase 344 H (50-170) U/L Total Protein 5.9 L (6.2-8.2) gm/dL Albumin 1.9 L (3.4-5.0) gm/dl Procalcitonin 7.79 H (0.05-0.50) ng/mL 08/22/16 Range/Units 08:35 WBC (4.0-10.5) K/mm3 RBC (4.2-5.4) M/mm3 Hgb (12.5-16.0) gm/dL Hct (37.0-47.0) % MCH (27-31) pg Neutrophils % (Manual) (42-75) % Band Neuts % (Manual) (0-2.0) % Lymphocytes % (Manual) (20-51) % Neutrophils # (Manual) (1.3-6.0) K/mm3 Lymphocytes # (Manual) (1.5-3.5) k/mm3 Monocytes # (Manual) (0.0-1.0) k/mm3 pO2 (23.3-35.1) mmHg HCO3 (22.0-29.0) mmol/L Total CO2 (22.0-26.0) mmol/L Base Excess (-2.0-3.0) mmol/L VBG O2 Saturation (94.0-98.0) % Potassium (3.4-4.6) mmol/L Carbon Dioxide (24-32.6) mmol/L Anion Gap (6.8-13.8) mmol/L BUN/Creatinine Ratio (9.0-21.6) Random Glucose (70-110) mg/dL Lactic Acid, Venous 2.1 H (0.4-2.0) mmol/L Calcium (7.9-10.9) mg/dL Alkaline Phosphatase (50-170) U/L Total Protein (6.2-8.2) gm/dL Albumin (3.4-5.0) gm/dl Procalcitonin (0.05-0.50) ng/mL - Exam Constitutional: Present: Alert, No distress, Elderly Respiratory: Present: lungs clear Cardiovascular/Chest: Present: regular rate, rhythm, tachycardia Abdomen: Present: soft, nontender /Rectal: Present: Exam deferred Extremity: Present: non-tender, no pedal edema Cauti Physician Documentation - Urinary Catheter Management Uretheral (Turner) Date of Insertion: 08/21/16 Time of Insertion: 16:00 Assessment/Plan - Problems/Diagnosis (1) Severe sepsis Problem: Acute (2) Sepsis secondary to UTI Problem: Acute Narrative: Blood culture growing gram-negative organisms sensitivity is not available yet Will continue current antibiotic treatment and hydration (3) Dementia Problem: Chronic (4) Abnormal LFTs Problem: Chronic
[2016-08-22] MEDS: ENOXAPARIN SODIUM 30 MG/0.3 ML SYRG SC SCH (14:56)
[2016-08-22] MEDS ORDERED: FUROSEMIDE 10 MG/ML VIAL IV ONE (15:05)
[2016-08-22] MEDS: QUEtiapine FUMARATE 25 MG TABLET PO SCH (20:12)
[2016-08-22] MEDS: PANTOPRAZOLE SODIUM 40 MG in NORMAL SALINE 100 ML IV SCH (20:12)
[2016-08-23] MEDS: NORMAL SALINE 1,000 ML IV PRN (00:28)
[2016-08-23] MEDS: DEXTROSE 5% IV SCH ×4 (05:33→18:36)
[2016-08-23] MEDS: WATER IV SCH ×4 (05:33→18:36)
[2016-08-23] MEDS: VALPROIC ACID IV SCH ×4 (05:33→18:36)
[2016-08-23 06:29] LABS: Mean Cell Volume 98.6 fl (78-100); Mean Corpuscular Hemoglobin 32.6 pg (27-31); Mean Platelet Volume 10.6 fl (6.0-9.5); Platelet Count 273 K/mm3 (150-450); Red Blood Count 2.18 M/mm3 (4.2-5.4); Red Cell Distribution Width 12.8 % (11.5-14.0); White Blood Count 20.7 K/mm3 (4.0-10.5)
[2016-08-23] MEDS: ATROPINE SULFATE 150 DROP BTL SL SCH ×3 (06:34→16:23)
[2016-08-23 06:35] LABS: Hemoglobin 7.1 gm/dL (12.5-16.0)
[2016-08-23 06:36] LABS: Hematocrit 21.5 % (37.0-47.0)
[2016-08-23 06:37] LABS: Total Cells Counted 100
[2016-08-23 07:09] LABS: Albumin * 1.8 gm/dl (3.4-5.0); Anion Gap 17.5 mmol/L (6.8-13.8); BUN/Creatinine Ratio 30.2 (9.0-21.6); Bilirubin, Total 0.5 mg/dL (0.0-1.1); Ca. Corrected For Albumin 8.9 mg/dL (8.4-10.2); Calcium * 7.5 mg/dL (7.9-10.9); Carbon Dioxide 19.6 mmol/L (24-32.6); Potassium 3.1 mmol/L (3.4-4.6); Total Protein 5.6 gm/dL (6.2-8.2)
[2016-08-23 07:16] LABS: Band 9 % (0-2.0); Dohle Bodies 1+; Hypochromia Trace; Immature Granulocyte 4 (0-1); Lymphocyte 3 % (20-51); Monocyte 3 % (0-9); Neutrophil 81 % (42-75); Neutrophil # 16.8 K/mm3 (1.3-6.0); Platelet Estimate Normal (NORMAL); Toxic Granulation 1+
[2016-08-23] MEDS: INSULIN REGULAR, HUMAN 100 UNITS/ML VIAL SC SCH ×4 (07:28→20:33)
--- NOTE | 2016-08-23 08:47 | PN ---
Subjective - Date and Time Seen Date: 08/23/16 Time: 08:43 Subjective Narrative: No complaint patient unable to talk Appears to be comfortable most of the time Objective - Review of Systems Generalized/Overall Review: Reports: No Symptoms Reported EENTM: Reports: No Symptoms Reported Respiratory: Reports: No Symptoms Reported Cardiac: Reports: No Symptoms Reported Abdominal: Reports: No Symptoms Reported Genitourinary Symptoms: Reports: No Symptoms Reported, Incontinent Neurological: Reports: No Symptoms Reported Skin: Reports: No Symptoms Reported - Vitals Vitals: Last Vital Signs Temp 36.6 C 08/23/16 06:37 Pulse 97 08/23/16 08:00 Resp 24 H 08/23/16 06:37 BP 139/87 08/23/16 06:37 Pulse Ox 99 08/23/16 06:37 - Abnormal Lab Findings Abnormal Lab Findings: Abnormal Lab Results 08/22/16 08/22/16 08/23/16 Range/Units 05:14 08:35 05:20 WBC 20.7 H D (4.0-10.5) K/mm3 RBC 2.18 L (4.2-5.4) M/mm3 Hgb 7.1 L* D (12.5-16.0) gm/dL Hct 21.5 L* D (37.0-47.0) % MCH 32.6 H (27-31) pg MPV 10.6 H (6.0-9.5) fl Neutrophils % (Manual) 81 H (42-75) % Band Neuts % (Manual) 9 H (0-2.0) % Lymphocytes % (Manual) 3 L (20-51) % Immature Granulocytes 4 H (0-1) Neutrophils # (Manual) 16.8 H (1.3-6.0) K/mm3 Lymphocytes # (Manual) 0.6 L (1.5-3.5) k/mm3 Potassium (3.4-4.6) mmol/L Carbon Dioxide (24-32.6) mmol/L Anion Gap (6.8-13.8) mmol/L Est GFR (Non-Af Amer) (60-130) mL/min BUN/Creatinine Ratio (9.0-21.6) Random Glucose (70-110) mg/dL Lactic Acid, Venous 2.1 H (0.4-2.0) mmol/L Calcium (7.9-10.9) mg/dL Alkaline Phosphatase (50-170) U/L Total Protein (6.2-8.2) gm/dL Albumin (3.4-5.0) gm/dl Procalcitonin 7.79 H (0.05-0.50) ng/mL 08/23/16 Range/Units 05:20 WBC (4.0-10.5) K/mm3 RBC (4.2-5.4) M/mm3 Hgb (12.5-16.0) gm/dL Hct (37.0-47.0) % MCH (27-31) pg MPV (6.0-9.5) fl Neutrophils % (Manual) (42-75) % Band Neuts % (Manual) (0-2.0) % Lymphocytes % (Manual) (20-51) % Immature Granulocytes (0-1) Neutrophils # (Manual) (1.3-6.0) K/mm3 Lymphocytes # (Manual) (1.5-3.5) k/mm3 Potassium 3.1 L (3.4-4.6) mmol/L Carbon Dioxide 19.6 L (24-32.6) mmol/L Anion Gap 17.5 H (6.8-13.8) mmol/L Est GFR (Non-Af Amer) 147 H D (60-130) mL/min BUN/Creatinine Ratio 30.2 H (9.0-21.6) Random Glucose 115 H (70-110) mg/dL Lactic Acid, Venous (0.4-2.0) mmol/L Calcium 7.5 L (7.9-10.9) mg/dL Alkaline Phosphatase 282 H (50-170) U/L Total Protein 5.6 L (6.2-8.2) gm/dL Albumin 1.8 L (3.4-5.0) gm/dl Procalcitonin (0.05-0.50) ng/mL - Exam Constitutional: Present: No distress, Elderly, Obese Respiratory: Present: lungs clear Cardiovascular/Chest: Present: regular rate, rhythm Abdomen: Present: soft, nontender Extremity: Present: no pedal edema Skin Exam: Present: normal color, warm/dry Cauti Physician Documentation - Urinary Catheter Management Uretheral (Turner) Date of Insertion: 08/21/16 Time of Insertion: 16:00 Assessment/Plan Plan Narrative: We'll continue current antibiotic pending the results of sensitivity - Problems/Diagnosis (1) Severe sepsis Problem: Acute (2) Sepsis secondary to UTI Problem: Acute (3) Dementia Problem: Chronic (4) Abnormal LFTs Problem: Chronic (5) Anemia Problem: Acute Narrative: Will do anemia workup We will give blood if Hemoglobin drops below 7
[2016-08-23 09:06] LABS: Iron 31 mcg/dL (35-120); Transferrin Sat. (% Sat.) 21 % (15-55)
[2016-08-23] MEDS: PHENYTOIN SODIUM IV SCH ×2 (09:32→16:24)
[2016-08-23] MEDS: NORMAL SALINE IV SCH ×2 (09:32→16:24)
[2016-08-23] MEDS: SPIRONOLACTONE 25 MG TABLET PO SCH ×2 (09:37→20:24)
[2016-08-23] MEDS: URSODIOL 300 MG CAPSULE PO SCH ×2 (09:37→20:24)
[2016-08-23] MEDS: MEROPENEM 1 GM in NORMAL SALINE 100 ML IV SCH (10:21)
[2016-08-23 12:42] LABS: Hematocrit 24.5 % (37.0-47.0)
[2016-08-23 12:51] LABS: Hemoglobin 7.7 gm/dL (12.5-16.0)
[2016-08-23] MEDS: POTASSIUM CHLORIDE 40 MEQ in NORMAL SALINE 1,000 ML IV SCH (13:55)
[2016-08-23] MEDS: ENOXAPARIN SODIUM 30 MG/0.3 ML SYRG SC SCH (14:31)
[2016-08-23] MEDS: POTASSIUM CHLORIDE 10 MEQ TABLET.SA PO SCH (16:34)
[2016-08-23 18:44] LABS: Hematocrit 18.4 % (37.0-47.0); Hemoglobin 6.4 gm/dL (12.5-16.0)
[2016-08-23] MEDS: LEVOFLOXACIN IV SCH (19:52)
[2016-08-23] MEDS: D5W IV SCH (19:52)
[2016-08-23] MEDS: QUEtiapine FUMARATE 25 MG TABLET PO SCH (20:24)
[2016-08-23] MEDS: PANTOPRAZOLE SODIUM 40 MG in NORMAL SALINE 100 ML IV SCH (21:53)
[2016-08-24] MEDS: MEROPENEM 1 GM in NORMAL SALINE 100 ML IV SCH (00:48)
[2016-08-24] MEDS: PHENYTOIN SODIUM IV SCH ×3 (04:10→20:21)
[2016-08-24] MEDS: NORMAL SALINE IV SCH ×3 (04:10→20:21)
[2016-08-24] MEDS: VALPROIC ACID IV SCH ×4 (05:46→18:00)
[2016-08-24] MEDS: WATER IV SCH ×4 (05:46→18:00)
[2016-08-24] MEDS: DEXTROSE 5% IV SCH ×4 (05:46→18:00)
[2016-08-24 06:50] LABS: Hematocrit 30.6 % (37.0-47.0); Hemoglobin 10.5 gm/dL (12.5-16.0); Mean Corpuscular Hemoglobin 31.9 pg (27-31); Mean Corpuscular Hgb Conc 34.3 g/dl (32-36); Mean Platelet Volume 9.1 fl (6.0-9.5); Platelet Count 261 K/mm3 (150-450); Red Blood Count 3.29 M/mm3 (4.2-5.4); Red Cell Distribution Width 14.3 % (11.5-14.0); White Blood Count 18.2 K/mm3 (4.0-10.5)
[2016-08-24 06:52] LABS: Total Cells Counted 100
[2016-08-24 07:03] LABS: Band 6 % (0-2.0); Immature Granulocyte 2 (0-1); Lymphocyte 1 % (20-51); Monocyte 4 % (0-9); Neutrophil 87 % (42-75); Neutrophil # 15.8 K/mm3 (1.3-6.0); Platelet Estimate Normal (NORMAL); RBC Morphology Normal (NORMAL)
[2016-08-24 07:09] LABS: BUN/Creatinine Ratio 34.4 (9.0-21.6); Bilirubin, Total 0.7 mg/dL (0.0-1.1); Ca. Corrected For Albumin 8.7 mg/dL (8.4-10.2); Calcium * 7.4 mg/dL (7.9-10.9); Carbon Dioxide 20.5 mmol/L (24-32.6); Potassium 3.5 mmol/L (3.4-4.6); Total Protein 5.1 gm/dL (6.2-8.2)
[2016-08-24] MEDS: INSULIN REGULAR, HUMAN 100 UNITS/ML VIAL SC SCH ×4 (07:39→20:14)
[2016-08-24] MEDS: ATROPINE SULFATE 150 DROP BTL SL SCH ×4 (07:45→17:27)
--- NOTE | 2016-08-24 08:22 | PN ---
Subjective - Date and Time Seen Date: 08/24/16 Time: 08:17 Subjective Narrative: No complain Objective - Review of Systems Generalized/Overall Review: Reports: No Symptoms Reported EENTM: Reports: No Symptoms Reported Respiratory: Reports: Cough Cardiac: Reports: No Symptoms Reported Abdominal: Reports: No Symptoms Reported Genitourinary Symptoms: Reports: Incontinent Musculoskeletal Complaints: Reports: No Symptoms Reported Neurological: Reports: No Symptoms Reported, Pre-existing Deficit Skin: Reports: No Symptoms Reported - Vitals Vitals: Last Vital Signs Temp 36.8 C 08/24/16 07:10 Pulse 105 H 08/24/16 07:10 Resp 20 08/24/16 07:10 BP 143/98 08/24/16 07:10 Pulse Ox 98 08/24/16 07:10 - Abnormal Lab Findings Abnormal Lab Findings: Abnormal Lab Results 08/23/16 08/23/16 08/23/16 Range/Units 05:20 12:25 18:20 WBC (4.0-10.5) K/mm3 RBC (4.2-5.4) M/mm3 Hgb 7.7 L* 6.4 L* (12.5-16.0) gm/dL Hct 24.5 L 18.4 L* D (37.0-47.0) % MCH (27-31) pg RDW (11.5-14.0) % Neutrophils % (Manual) (42-75) % Band Neuts % (Manual) (0-2.0) % Lymphocytes % (Manual) (20-51) % Immature Granulocytes (0-1) Neutrophils # (Manual) (1.3-6.0) K/mm3 Lymphocytes # (Manual) (1.5-3.5) k/mm3 Nucleated RBCs (0-1) % Chloride (97-106) mmol/L Carbon Dioxide (24-32.6) mmol/L Anion Gap (6.8-13.8) mmol/L Creatinine (0.4-1.4) mg/dL Est GFR (Non-Af Amer) (60-130) mL/min BUN/Creatinine Ratio (9.0-21.6) Random Glucose (70-110) mg/dL Calcium (7.9-10.9) mg/dL Iron 31 L (35-120) mcg/dL TIBC 146 L (260-445) mcg/dL Alkaline Phosphatase (50-170) U/L Total Protein (6.2-8.2) gm/dL Albumin (3.4-5.0) gm/dl Crossmatch 08/23/16 08/24/16 08/24/16 Range/Units 19:15 06:35 06:35 WBC 18.2 H (4.0-10.5) K/mm3 RBC 3.29 L (4.2-5.4) M/mm3 Hgb 10.5 L (12.5-16.0) gm/dL Hct 30.6 L (37.0-47.0) % MCH 31.9 H (27-31) pg RDW 14.3 H (11.5-14.0) % Neutrophils % (Manual) 87 H (42-75) % Band Neuts % (Manual) 6 H (0-2.0) % Lymphocytes % (Manual) 1 L (20-51) % Immature Granulocytes 2 H (0-1) Neutrophils # (Manual) 15.8 H (1.3-6.0) K/mm3 Lymphocytes # (Manual) 0.2 L (1.5-3.5) k/mm3 Nucleated RBCs 2.0 H (0-1) % Chloride 109 H (97-106) mmol/L Carbon Dioxide 20.5 L (24-32.6) mmol/L Anion Gap 15.0 H (6.8-13.8) mmol/L Creatinine 0.32 L (0.4-1.4) mg/dL Est GFR (Non-Af Amer) 207 H D (60-130) mL/min BUN/Creatinine Ratio 34.4 H (9.0-21.6) Random Glucose 139 H (70-110) mg/dL Calcium 7.4 L (7.9-10.9) mg/dL Iron (35-120) mcg/dL TIBC (260-445) mcg/dL Alkaline Phosphatase 232 H (50-170) U/L Total Protein 5.1 L (6.2-8.2) gm/dL Albumin 2.0 L (3.4-5.0) gm/dl Crossmatch See Detail - Exam Constitutional: Present: Lethargic, Elderly, Overweight Respiratory: Present: lungs clear Cardiovascular/Chest: Present: regular rate, rhythm Abdomen: Present: soft, nontender Extremity: Present: no pedal edema Skin Exam: Present: normal color Neurologic: Present: aphasia, motor weakness Cauti Physician Documentation - Urinary Catheter Management Uretheral (Turner) Date of Insertion: 08/21/16 Time of Insertion: 16:00 Assessment/Plan Plan Narrative: Blood culture came back growing Klebsiella sensitive to Rocephin Merrem and Levaquin will be discontinued - Problems/Diagnosis (1) Severe sepsis Problem: Acute (2) Sepsis secondary to UTI Problem: Acute (3) Dementia Problem: Chronic (4) Abnormal LFTs Problem: Chronic (5) Anemia Problem: Acute Qualifiers: Anemia type: iron deficiency Narrative: Hemoglobin was 6.2 therefore she was given 2 units blood transfusion Iron level was low so she will be given IV venofer Stool is negative for blood
[2016-08-24] MEDS: IRON SUCROSE COMPLEX 100 MG in NORMAL SALINE 100 ML IV SCH (09:58)
[2016-08-24] MEDS: URSODIOL 300 MG CAPSULE PO SCH ×2 (09:59→20:30)
[2016-08-24] MEDS: SPIRONOLACTONE 25 MG TABLET PO SCH ×2 (09:59→20:30)
[2016-08-24] MEDS: POTASSIUM CHLORIDE 10 MEQ TABLET.SA PO SCH ×2 (10:02→17:28)
[2016-08-24] MEDS: ENOXAPARIN SODIUM 30 MG/0.3 ML SYRG SC SCH (15:40)
[2016-08-24] MEDS: POTASSIUM CHLORIDE 40 MEQ in NORMAL SALINE 1,000 ML IV SCH (17:29)
[2016-08-24] MEDS: QUEtiapine FUMARATE 25 MG TABLET PO SCH (20:30)
[2016-08-24] MEDS: PANTOPRAZOLE SODIUM 40 MG in NORMAL SALINE 100 ML IV SCH (20:58)
[2016-08-25] MEDS: NORMAL SALINE IV SCH ×3 (04:52→20:50)
[2016-08-25] MEDS: PHENYTOIN SODIUM IV SCH ×3 (04:52→20:50)
[2016-08-25 05:10] LABS: Hematocrit 25.6 % (37.0-47.0); Hemoglobin 8.8 gm/dL (12.5-16.0); Mean Cell Volume 95.9 fl (78-100); Mean Corpuscular Hgb Conc 34.4 g/dl (32-36); Mean Platelet Volume 10.1 fl (6.0-9.5); NRBC# 0.8 k/mm3 (0-1); Neutrophil # 13.1 K/mm3 (1.3-6.0); Neutrophil % 77.1 % (42-75.0); Platelet Count 222 K/mm3 (150-450); Red Blood Count 2.67 M/mm3 (4.2-5.4); Red Cell Distribution Width 15.7 % (11.5-14.0)
[2016-08-25 05:29] LABS: Total Cells Counted 100
[2016-08-25 05:31] LABS: Albumin * 1.9 gm/dl (3.4-5.0); Anion Gap 17.1 mmol/L (6.8-13.8); Bilirubin, Total 0.7 mg/dL (0.0-1.1); Ca. Corrected For Albumin 9.1 mg/dL (8.4-10.2); Calcium * 7.7 mg/dL (7.9-10.9); Carbon Dioxide 18.8 mmol/L (24-32.6); Potassium 4.9 mmol/L (3.4-4.6); Total Protein 5.2 gm/dL (6.2-8.2)
[2016-08-25] MEDS ORDERED: NORMAL SALINE 500 ML IV ONE (06:12)
[2016-08-25 06:29] LABS: Lymphocyte 15 % (20-51); Monocyte 3 % (0-9); Neutrophil 82 % (42-75); Neutrophil # 13.9 K/mm3 (1.3-6.0)
[2016-08-25 06:31] LABS: Platelet Estimate Normal (NORMAL)
[2016-08-25 06:33] LABS: RBC Morphology Normal (NORMAL)
[2016-08-25] MEDS: VALPROIC ACID IV SCH ×4 (08:05→18:47)
[2016-08-25] MEDS: DEXTROSE 5% IV SCH ×4 (08:05→18:47)
[2016-08-25] MEDS: WATER IV SCH ×4 (08:05→18:47)
[2016-08-25] MEDS: ATROPINE SULFATE 150 DROP BTL SL SCH ×3 (08:06→16:11)
[2016-08-25] MEDS: INSULIN REGULAR, HUMAN 100 UNITS/ML VIAL SC SCH ×4 (08:09→20:25)
[2016-08-25] MEDS: POTASSIUM CHLORIDE 10 MEQ TABLET.SA PO SCH (08:11)
[2016-08-25] MEDS: SPIRONOLACTONE 25 MG TABLET PO SCH ×3 (08:11→20:24)
[2016-08-25] MEDS: URSODIOL 300 MG CAPSULE PO SCH ×3 (08:12→20:25)
[2016-08-25] MEDS ORDERED: FUROSEMIDE 10 MG/ML VIAL IV ONE ×2 (08:15→15:12)
[2016-08-25] MEDS: IRON SUCROSE COMPLEX 100 MG in NORMAL SALINE 100 ML IV SCH (10:19)
[2016-08-25] MEDS: POTASSIUM CHLORIDE 40 MEQ in NORMAL SALINE 1,000 ML IV SCH (10:21)
[2016-08-25] MEDS ORDERED: POTASSIUM PHOS,M-BASIC-D-BASIC 18 MM, ELECTROLYTE SOLUTION,INJ 20 ML, MULTIVIT INFUSN,A... IV SCH ×6 (12:30)
[2016-08-25 13:41] LABS: Bilirubin Direct 0.2 mg/dL (0.0-0.3); Magnesium 1.6 mg/dL (1.2-2.8)
--- NOTE | 2016-08-25 13:51 | OR ---
Anesthesia Procedure Note - Anesthesia Procedure Note Narrative: Vital Signs - Last Taken Temp 37.1 C 08/25/16 07:00 Pulse 128 H 08/25/16 08:36 Resp 32 H 08/25/16 07:00 BP 138/103 08/25/16 08:36 Pulse Ox 100 08/25/16 07:00 O2 Oxygen Delivery Method Room Air 08/25/16 13:47 ANESTHESIA PROCEDURE NOTE Date of procedure: ANESTHESIA PROCEDURE NOTE Date of procedure:08/25/2016. Time of procedure: 1330. Performed by: Roberto Fine CRNA Orientation & Mobility Specialist: . Preprocedure diagnosis: Need for intravenous TPN. Need for central line.. Post procedure diagnosis: Same. Procedure: Attempted PICC line placement. Indications: Need for TPN. Findings: Left antecubital PICC line insertion attempted. Venous access obtained but unable to advance guidewire. Procedure aborted. EBL: Minimal. Fluids: N/A. Specimen: N/A. Post procedure condition: The patient tolerated the procedure well. No complications were noted. Thank you for this consultation Roberto Fine CRNA 08/25/2016. Time of procedure:[]. Performed by: Roberto Fine CRNA Orientation & Mobility Specialist: [] . Preprocedure diagnosis: []. Post procedure diagnosis: Same. Procedure:[] Indications: []. Findings: [] EBL: Minimal. Fluids: N/A. Specimen: N/A. Post procedure condition: The patient tolerated the procedure well. No complications were noted. Thank you for this consultation Roberto Fine CRNA
[2016-08-25] MEDS ORDERED: ELECTROLYTE IV SCH ×6 (15:00)
[2016-08-25] MEDS ORDERED: [UNRECOGNIZED DRUG - OTHER] IV SCH ×6 (15:00)
[2016-08-25] MEDS ORDERED: MULTIVIT INFUSN ADULT K IV SCH ×6 (15:00)
[2016-08-25] MEDS: ENOXAPARIN SODIUM 30 MG/0.3 ML SYRG SC SCH (15:08)
[2016-08-25] MEDS ORDERED: FAT EMULSIONS 50 G in Premix Bag 1 BAG IV SCH (16:00)
--- NOTE | 2016-08-25 16:34 | CONS ---
HPI - General Date of Service: 08/25/16 Narrative: I have been asked to perform a central line placement. A PICC line attempt today has been unsuccessful. An attempt at ABGs today has been unsuccessful. 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 Source: RN/, old records - History of Present Illness Allergies/Adverse Reactions: Allergies No Known Allergies Allergy (Verified 08/21/16 10:18) Home Medications: Home Medications Medication Instructions Recorded Last Taken Atropine Sulfate [Atropine 1% 4 drop SL Q4H PRN 05/20/13 08/21/16 Ophthalmic Solution] Divalproex Sodium [Depakote] 500 mg PO DAILY 05/20/13 08/21/16 Phenytoin [Dilantin Suspension] 125 mg PO BID 05/20/13 08/21/16 QUEtiapine FUMARATE [Seroquel] 12.5 mg PO HS 05/20/13 08/21/16 Spironolactone 25 mg PO BID 05/20/13 08/21/16 Atropine Sulfate [Atropine 1% 4 drop SL AC 02/03/16 08/21/16 Ophthalmic Solution] Acetaminophen [Tylenol] 500 mg PO Q6H PRN 08/21/16 08/21/16 Aspirin [Aspirin EC] 81 mg PO DAILY 08/21/16 08/21/16 Omeprazole [Prilosec] 20 mg PO DAILY 08/21/16 08/21/16 Simvastatin 20 mg PO DAILY 08/21/16 08/21/16 Ursodiol [Actigall] 300 mg PO BID 08/21/16 08/21/16 - Patient's Past Medical History Patient History - Medical: Alzheimer's Disease, Dementia, Seizures, Other Patient History - Cardiac/Respiratory: CVA/Stroke, Hypertension, Hyperlipidemia , Pneumonia, TIA Patient History - Cancer: No Hx of Cancer Patient History - Surgical Procedures: No surgical history Patient History - Other: None LMP (females 10-50): Menopausal - Family History Unknown Family History - Medical: History Unknown - Social History Living Situations: senior care Abuse History: No History of abuse Psych History: No pertinent hx Smoking Status: Never smoker Have you smoked in the past 12 months: No Alcohol Use: none Drug Use: none - Immunizations Immunizations Up to Date: Yes Hx Pneumococcal Vaccination: No History of Influenza Vaccine: No Procedures SPINAL TAP (11/17/06) Medications - Medications Current Medications: Current Medications Atropine Sulfate (Atropine 1% Ophthalmic Solution) 4 drop SL AC [facility] Stop: 09/20/16 17:01 Last Admin: 08/25/16 16:11 Dose: 4 drop Enoxaparin Sodium (Lovenox) 30 mg SC Q24H [facility] Stop: 09/21/16 15:01 Last Admin: 08/25/16 15:08 Dose: 30 mg Phenytoin Sodium 83 mg/ Sodium (Chloride) 51.66 mls @ 100 mls/hr IV Q8H [facility] Stop: 09/20/16 16:31 Last Admin: 08/25/16 11:54 Dose: 100 mls/hr Valproic Acid 250 mg/ Dextrose (/Water) 52.5 mls @ 50 mls/hr IV Q12H [facility] Stop: 09/04/16 18:31 Last Admin: 08/25/16 08:05 Dose: 50 mls/hr Pantoprazole Sodium 40 mg/ (Sodium Chloride) 100 mls @ 400 mls/hr IV Q24H [facility] Stop: 09/20/16 21:01 Last Infusion: 08/24/16 21:13 Dose: Infused Ceftriaxone Sodium 1,000 mg/ (Dextrose/Water) 100 mls @ 200 mls/hr IV Q24H [facility] PRN Reason: Protocol Stop: 09/23/16 09:31 Last Admin: 08/25/16 11:04 Dose: 200 mls/hr Iron Sucrose 100 mg/ Sodium (Chloride) 105 mls @ 200 mls/hr IV DAILY [facility] Stop: 09/23/16 09:01 Last Admin: 08/25/16 10:19 Dose: 200 mls/hr ELECTROLYTE SOLUTION,INJ 20 ml / MULTIVIT INFUSN,ADULT 4,VIT K 10 ml/ ZINC/ COPPER/RICHARD/CHROMIC CHL 5 ml/ Amino Acids/Dextrose 2,035 mls @ 43 mls/hr IV Q24H [facility] Stop: 08/26/16 14:59 Last Admin: 08/25/16 16:11 Dose: Not Given Fat Emulsion Intravenous 50 g/ (Premix Bag) 250 mls @ 43 mls/hr IV [id number]@1600 [facility] Stop: 09/24/16 16:01 Last Admin: 08/25/16 16:11 Dose: Not Given Insulin Human Regular (Humulin R) 0 units SC ACHSINS [facility] PRN Reason: Protocol Stop: 09/21/16 12:01 Last Admin: 08/25/16 16:17 Dose: Not Given Quetiapine Fumarate (Seroquel) 12.5 mg PO HS [facility] Stop: 09/20/16 21:01 Last Admin: 08/24/16 20:30 Dose: 12.5 mg Spironolactone (Aldactone) 25 mg PO BID [facility] Stop: 09/20/16 21:01 Last Admin: 08/25/16 08:40 Dose: Not Given Ursodiol (Actigall) 300 mg PO BID [facility] Stop: 09/20/16 21:01 Last Admin: 08/25/16 08:40 Dose: Not Given Physical Examination - Exam Vital Signs: Vital Signs - Last Taken Temp 36.5 C 08/25/16 15:59 Pulse 120 H 08/25/16 15:59 Resp 40 H 08/25/16 15:59 BP 113/77 08/25/16 15:59 Pulse Ox 100 08/25/16 07:00 O2 Oxygen Delivery Method Room Air Respiratory: Present: other - Emesron-Larkin respirations Skin Exam: Present: pallor - Results and Findings: Narrative: A: Failure of peripheral access P: I recommended to the son to put her in palliative/comfort care. We had an extensive discussion in this regard and despite our recommendation he would like all medical efforts expended. Lab/Microbiology results last 24 hrs: Abnormal/Pending Laboratory Last 24 HRS 08/25/16 08/25/16 08/25/16 05:05 05:05 05:05 WBC RBC Hgb Hct MCH RDW MPV Immature Gran % (Auto) Immature Gran # (Auto) Neutrophils % Neutrophils % (Manual) Lymphocytes % Lymphocytes % (Manual) Monocytes % Neutrophils # Neutrophils # (Manual) Lymphocytes # Monocytes # Nucleated RBCs Sodium 144 H Plasma Sodium 145 H Potassium 4.9 H D Chloride 113 H Carbon Dioxide 18.8 L Anion Gap 17.1 H BUN/Creatinine Ratio 25.0 H Random Glucose 156 H Calcium 7.7 L Phosphorus 2.0 L D Alkaline Phosphatase 183 H Total Protein 5.2 L Albumin 1.9 L Procalcitonin 1.18 H 08/25/16 05:05 WBC 17.0 H RBC 2.67 L Hgb 8.8 L Hct 25.6 L MCH 33.0 H RDW 15.7 H MPV 10.1 H Immature Gran % (Auto) 1.80 H Immature Gran # (Auto) 0.31 H Neutrophils % 77.1 H Neutrophils % (Manual) 82 H Lymphocytes % 5.9 L Lymphocytes % (Manual) 15 L Monocytes % 14.9 H Neutrophils # 13.1 H Neutrophils # (Manual) 13.9 H Lymphocytes # 1.0 L Monocytes # 2.5 H Nucleated RBCs 7.0 H Sodium Plasma Sodium Potassium Chloride Carbon Dioxide Anion Gap BUN/Creatinine Ratio Random Glucose Calcium Phosphorus Alkaline Phosphatase Total Protein Albumin Procalcitonin
--- NOTE | 2016-08-25 16:38 | OR ---
Operative Report - Dictated Report Narrative: Date: 08/25/16 Pre: failure of peripheral venous access, need for central venous access Post: Same Procedure: Attempted left subclavian central venous access. Surgeon: Gerardo Tao MD Procedure: Done at bedside. Left subclavian area prepped with chloraprep. Field block performed with lidocaine. Numerous attempts at cannulation were successful with a weak flash but inability to thread guide wire. Procedure was abandoned. CXR is pending at the time of this report. Appeared to tolerate procedure well without apparent complications.
--- NOTE | 2016-08-25 16:52 | PN ---
Subjective - Date and Time Seen Date: 08/25/16 Time: 13:20 Subjective Narrative: Bhavana is an 86 year old female who presented to the ER from the [facility] with a fever overnight of 102.3 and "increased lung sounds". pt is non-verbal and has been for the past 10 years. PMH is significant for alzheimer's disease, seizures, cva, hypertension, hyperlipidemia, pneumonia, tia. Patient has a chronic history of difficulty handling her oral secretions and has been admitted for aspiration pneumonia in the past. No family is available during patient assessment. I called Prakash Bullock (MARILIN) after patient assessment and updated him on patient's condition. I also verified code status with him and he informed me over the phone that he did want "a tube down her throat and a machine to help her breathe" if she develops respiratory failure and "chest compressions" if her heart stops beating. I also made sure Prakash understood that even if she is made a DNR we could continue to treat her infection. Prakash verbalized his understanding but again indicated that he wished for her to remain a full code. Patient has dysphagis at baseline and is on a pureed diet at the [facility]. Work up in the emergency room revealed marked leukocytosis with wbc at 50,000 with 38 bands, lactic acidosis at 6.4 with procalcitonin at 17.45. UA consistent with infection. chest xray showed no acute abnormalities. iv rocephin was given in the ER. peripheral blood smear showed 2+macrocytosis, platelet clumping, marked leukocytosis with left shift of granulocytic series, which pathologist believes is a leukemoid reaction but need to rule out chronic myeloid leukemia. Over the next few days, the patient's leukocytosis started to improve and her wbc's started to decline. on 08/24/16, blood cultures grew kleb, sensitive to rocephin and meropenum so levaquin was discontinued and rocephin was started. Patient's hgb also dropped and she received 2 units of blood. iron level was also low and she is received iv venofer. occult stool is negative for blood. On 08/25/16, urine output overnight was very low - less than 50 ml. 80 mg of lasix was given iv - this produced approximately 300 ml of urine. pt's weight is up 6 kg over the last 4 days. pt is now minimally responsive with periods of apenic breathing. This is a significant change. Prakash, the patient's POA and SON, gave permission for PICC line placement but this was unsuccessful. Prakash arrived later that afternoon. I had a long talk with Prakash that afternoon both by myself and with Dr. Rollins (general surgery) and explained that despite our best efforts in medical care that his mother was nearing end of life - especially given the breathing pattern that she was exhibiting currently. Prakash Bullock, the POA, after talking to both of us, expressed his wishes for everything to be done for his mother and for her to still be a full code. Prakash also wished to have a central line placed and his mother started on supplemental nutrition, such as TPN. Objective Objective Narrative: unable to obtain ROS due to patient's condition. - Vitals Vitals: Last Vital Signs Temp 36.5 C 08/25/16 15:59 Pulse 120 H 08/25/16 15:59 Resp 40 H 08/25/16 15:59 BP 113/77 08/25/16 15:59 Pulse Ox 100 08/25/16 07:00 - Abnormal Lab Findings Abnormal Lab Findings: Abnormal Lab Results 08/25/16 08/25/16 08/25/16 Range/Units 05:05 05:05 05:05 WBC 17.0 H (4.0-10.5) K/mm3 RBC 2.67 L (4.2-5.4) M/mm3 Hgb 8.8 L (12.5-16.0) gm/dL Hct 25.6 L (37.0-47.0) % MCH 33.0 H (27-31) pg RDW 15.7 H (11.5-14.0) % MPV 10.1 H (6.0-9.5) fl Immature Gran % (Auto) 1.80 H (0.001-0.429) % Immature Gran # (Auto) 0.31 H (0.000-0.0310) K/mm3 Neutrophils % 77.1 H (42-75.0) % Neutrophils % (Manual) 82 H (42-75) % Lymphocytes % 5.9 L (20-51) % Lymphocytes % (Manual) 15 L (20-51) % Monocytes % 14.9 H (0.0-9) % Neutrophils # 13.1 H (1.3-6.0) K/mm3 Neutrophils # (Manual) 13.9 H (1.3-6.0) K/mm3 Lymphocytes # 1.0 L (1.5-3.5) k/mm3 Monocytes # 2.5 H (0.0-1.0) k/mm3 Nucleated RBCs 7.0 H (0-1) % Sodium 144 H (132-142) mmol/L Plasma Sodium 145 H (130-142) mmol/L Potassium 4.9 H D (3.4-4.6) mmol/L Chloride 113 H (97-106) mmol/L Carbon Dioxide 18.8 L (24-32.6) mmol/L Anion Gap 17.1 H (6.8-13.8) mmol/L BUN/Creatinine Ratio 25.0 H (9.0-21.6) Random Glucose 156 H (70-110) mg/dL Calcium 7.7 L (7.9-10.9) mg/dL Phosphorus (2.2-4.2) mg/dL Alkaline Phosphatase 183 H (50-170) U/L Total Protein 5.2 L (6.2-8.2) gm/dL Albumin 1.9 L (3.4-5.0) gm/dl Procalcitonin 1.18 H (0.05-0.50) ng/mL 08/25/16 Range/Units 05:05 WBC (4.0-10.5) K/mm3 RBC (4.2-5.4) M/mm3 Hgb (12.5-16.0) gm/dL Hct (37.0-47.0) % MCH (27-31) pg RDW (11.5-14.0) % MPV (6.0-9.5) fl Immature Gran % (Auto) (0.001-0.429) % Immature Gran # (Auto) (0.000-0.0310) K/mm3 Neutrophils % (42-75.0) % Neutrophils % (Manual) (42-75) % Lymphocytes % (20-51) % Lymphocytes % (Manual) (20-51) % Monocytes % (0.0-9) % Neutrophils # (1.3-6.0) K/mm3 Neutrophils # (Manual) (1.3-6.0) K/mm3 Lymphocytes # (1.5-3.5) k/mm3 Monocytes # (0.0-1.0) k/mm3 Nucleated RBCs (0-1) % Sodium (132-142) mmol/L Plasma Sodium (130-142) mmol/L Potassium (3.4-4.6) mmol/L Chloride (97-106) mmol/L Carbon Dioxide (24-32.6) mmol/L Anion Gap (6.8-13.8) mmol/L BUN/Creatinine Ratio (9.0-21.6) Random Glucose (70-110) mg/dL Calcium (7.9-10.9) mg/dL Phosphorus 2.0 L D (2.2-4.2) mg/dL Alkaline Phosphatase (50-170) U/L Total Protein (6.2-8.2) gm/dL Albumin (3.4-5.0) gm/dl Procalcitonin (0.05-0.50) ng/mL - Exam Constitutional: Present: Other - non verbal, moans and flutters eyes to pain only., Elderly ENT Exam: Present: moist mucous membranes Neck: Present: supple Breasts: Present: Exam deferred Respiratory: Present: respiratory distress, crackles, rales, other - apenic episodes noted, chayne-scales respirations noted. Cardiovascular/Chest: Present: JVD, tachycardia, edema - lower extremity edema noted Abdomen: Present: soft, nontender /Rectal: Present: Exam deferred Extremity: Present: lower extremity edema Skin Exam: Present: no cyanosis, pallor Cauti Physician Documentation - Urinary Catheter Management Uretheral (Turner) Urethral Indwelling: Yes Reason for Continuing Indwelling Catheter: Measure accurate output Date of Insertion: 08/21/16 Time of Insertion: 16:00 Assessment/Plan Plan Narrative: appears to be approaching end of life - son still wants to pt be to a full code despite multiple teachings. will given an additional dose of iv lasix this afternoon to see if additional diuresis can be obtained. continue rocephin and meropenum for bacteremia. continue iv venofer for low iron levels. monitor pt closely. - Problems/Diagnosis (1) Severe sepsis Problem: Acute (2) Hypertension Problem: Chronic Qualifiers: Hypertension type: essential hypertension Qualified Code(s): I10 - Essential (primary) hypertension (3) Leukemoid reaction Problem: Acute (4) Bandemia Problem: Acute (5) Intravascular volume depletion Problem: Acute (6) Elevated serum glucose with glucosuria Problem: Acute (7) UTI (urinary tract infection) Problem: Acute Qualifiers: Urinary tract infection type: acute cystitis Hematuria presence: with hematuria Qualified Code(s): N30.01 - Acute cystitis with hematuria (8) Fever Problem: Acute Qualifiers: Fever type: unspecified Qualified Code(s): R50.9 - Fever, unspecified (9) Hyperglycemia Problem: Acute (10) Leukocytosis Problem: Acute Qualifiers: Leukocytosis type: lymphocytosis Qualified Code(s): D72.820 - Lymphocytosis (symptomatic) (11) Status post CVA Problem: Chronic (12) Seizure disorder Problem: Chronic (13) Aspiration pneumonia Problem: Suspected Qualifiers: Aspiration pneumonia type: unspecified Laterality: unspecified laterality Lung location: unspecified part of lung Qualified Code(s): J69.0 - Pneumonitis due to inhalation of food and vomit (14) Dysphagia Problem: Chronic Qualifiers: Dysphagia type: unspecified Qualified Code(s): R13.10 - Dysphagia, unspecified (15) Anemia Problem: Acute Qualifiers: Anemia type: iron deficiency (16) Bacteremia Problem: Acute
[2016-08-25] MEDS: QUEtiapine FUMARATE 25 MG TABLET PO SCH (20:26)
[2016-08-25] MEDS: PANTOPRAZOLE SODIUM 40 MG in NORMAL SALINE 100 ML IV SCH (20:27)
[2016-08-25] MEDS ORDERED: NORMAL SALINE 1,000 ML IV PRN (23:16)
[2016-08-26] MEDS ORDERED: ALBUTEROL SULFATE 2.5 MG/3 ML VIAL.NEB IH ONE ×5 (03:44→04:21)
[2016-08-26] MEDS ORDERED: NORMAL SALINE 1,000 ML IV ONE ×3 (04:19→05:36)
[2016-08-26] MEDS: NORMAL SALINE IV SCH (04:32)
[2016-08-26] MEDS: PHENYTOIN SODIUM IV SCH (04:32)
--- NOTE | 2016-08-26 04:59 | PN ---
Subjective - Date and Time Seen Date: 08/26/16 Time: 04:55 Subjective Narrative: Notified by pt's attending RN about pt's sudden decline/change in V.S. Nursing reported B/P of 65/42, R 38, HR 128 & POX 80% RA. Pt is a long-term care resident at [facility]. She was admitted on 08/21/16 and was found to have Sepsis secondary to a UTI, with a WBC of 50,000, Lactic acid of 6.4 & 38 Bands. She is non-verbal due to advanced Alzheimer's disease and unresponsive to verbal /external stimuli at baseline. She has a known difficulty of mobilizing secretions due to a prior CVA. For the past 24hrs pt has had decreased urinary output. She did not respond well to IV diuretics despite receiving 160mg of IV Lasix. Objective Objective Narrative: Pt evaluated. Noted to be unresponsive to external/verbal stimuli at baseline with GCS of 3. Is noted to have retraction breathing with constant use of accessory muscles. LS reveal Ronchi throughout both bases. Skin on upper & lower extremities was very cool to touch with cyanosis on nail beds. Required oxygen supplementation via Non- rebreather mask with 15 L to keep POX > 90%. Given Albuterol treatments x 3 but this did not give much way in improving POX levels. Persistently ranged 80- 92%. RT unable to obtain ABG's due to very poor arterial/venous access. Currently on the Third Liter of IVF and SBP persistently staying under 80. Continues to lack urine output despite aggressive IVF. Will start Vasopressors after the 4 L of fluid resuscitation and transfer to the SCU for close monitoring. - Vitals Vitals: Selected Entries 08/26/16 08/26/16 03:33 04:34 Blood Pressure 65/42 84/37 Blood Pressure 49 52 Mean - Abnormal Lab Findings Abnormal Lab Findings: Abnormal Lab Results 08/25/16 08/25/16 08/25/16 05:05 05:05 05:05 WBC 17.0 H RBC 2.67 L Hgb 8.8 L Hct 25.6 L MCH 33.0 H RDW 15.7 H MPV 10.1 H Immature Gran % (Auto) 1.80 H Immature Gran # (Auto) 0.31 H Lymphocytes % 5.9 L Lymphocytes % (Manual) 15 L Monocytes % 14.9 H Sodium 144 H Plasma Sodium 145 H Potassium 4.9 H D Chloride 113 H Carbon Dioxide 18.8 L Anion Gap 17.1 H BUN/Creatinine Ratio 25.0 H Random Glucose 156 H Alkaline Phosphatase 183 H Total Protein 5.2 L Albumin 1.9 L Procalcitonin 1.18 H Cauti Physician Documentation - Urinary Catheter Management Uretheral (Turner) Urethral Indwelling: Yes Date of Insertion: 08/21/16 Time of Insertion: 16:00 Assessment/Plan - Problems/Diagnosis (1) Acute respiratory distress syndrome (ARDS) Problem: Acute Narrative: The pt is a 86-yr-old female pt who suddenly became hypoxic during the wee hours on 08/26 with a pox of 80% and was noted to have laboured breathing. Pt given nebulizer treatments repeatedly x 3 and required oxygen supplementation via the non- rebreather mask with 15 L of oxygen. Unable to titrate oxygen down due to instant and fluctuating POX desaturations, as well as constant retraction breathing. ABGs were unable to be obtained by RT due to poor venous access. Difficult peripheral access also made it difficult to obtain other necessary laboratory work, and was limited to one peripheral IV access for resuscitative efforts. She bacame hypotensive and was given IVF boluses. Pt's condition determined to warrant mechanical intubation in order to alleviate respiratory distress. Son Prakash, who is also POA was contacted by the household appliance repairer about the declining state of the pt and the fact that we were approaching intubation state, but pt's poor prognosis & complex IV access would complicate resuscitative efforts ( refer to N.N on context of communication). POA Prakash agreed to changing pt's code status from Full to DNR/ DNI. I spoke to Prakash about this wish, who at the time was preparing to come to the hospital to see his mother. I explained that his loved one was approaching end of life and there was a need to transition to comfort care. While he reiterated that his desire was to keep the pt DNR/DNI, he wanted to wait till he arrives here to make the decision to keep her comfortable. (2) Hypotension Problem: Acute Narrative: Blood pressure persistently low despite IVF boluses. Will start IV vasopressors. However, the fluid resuscitation efforts is going to be challenging due to poor IV access. She has one peripheral IV access. Attempts to start a central access line on 08/25 by surgery was unsuccessful. May need I/ O site established and even then, the pt's outcome will be an unfavorable one. Will make any attempts to help promote tissue perfusion until son arrives here to open up more discussions about comfort cares.
[2016-08-26] MEDS: WATER IV SCH ×2 (06:37)
[2016-08-26] MEDS: DEXTROSE 5% IV SCH ×2 (06:37)
[2016-08-26] MEDS: VALPROIC ACID IV SCH ×2 (06:37)
[2016-08-26] MEDS: INSULIN REGULAR, HUMAN 100 UNITS/ML VIAL SC SCH (06:38)
[2016-08-26] MEDS: ATROPINE SULFATE 150 DROP BTL SL SCH (06:43)
[2016-08-26] MEDS ORDERED: ALBUTEROL SULFATE 2.5 MG/3 ML VIAL.NEB IH SCH (07:00)
[2016-08-26] MEDS: POTASSIUM CHLORIDE 40 MEQ in NORMAL SALINE 1,000 ML IV SCH (07:08)
[2016-08-26] MEDS ORDERED: ALBUTEROL SULFATE 2.5 MG/3 ML VIAL.NEB IH PRN (07:35)
[2016-08-26] MEDS ORDERED: NORMAL SALINE 1,000 ML IV PRN (07:59)
[2016-08-26 08:15] VITALS: BP 69/37
[2016-08-26] MEDS ORDERED: LORazepam 2 MG/ML DISP.SYRIN IV ONE (08:16)
[2016-08-26] MEDS ORDERED: HYDROmorphone HCL 2 MG/ML VIAL IV PRN (08:16)
[2016-08-26] MEDS ORDERED: POLYVINYL ALCOHOL 150 DROP BTL EACHEYE PRN (08:16)
[2016-08-26] MEDS ORDERED: LORazepam 2 MG/ML DISP.SYRIN IV PRN ×2 (08:19→08:20)
[2016-08-26] MEDS ORDERED: LORazepam 2 MG/ML DISP.SYRIN IV SCH (08:30)
[2016-08-26] MEDS ORDERED: HYDROPHILIC OINTMENT 454 APPL JAR TP SCH (09:00)
--- NOTE | 2016-08-26 10:00 | PN ---
Subjective - Date and Time Seen Date: 08/26/16 Time: 08:30 Subjective Narrative: Bhavana is an 86 year old female who presented to the ER from the [facility] with a fever overnight of 102.3 and "increased lung sounds". pt is non-verbal and has been for the past 10 years. PMH is significant for alzheimer's disease, seizures, cva, hypertension, hyperlipidemia, pneumonia, tia. Patient has a chronic history of difficulty handling her oral secretions and has been admitted for aspiration pneumonia in the past. No family is available during patient assessment. I called Prakash Bullock (MARILIN) after patient assessment and updated him on patient's condition. I also verified code status with him and he informed me over the phone that he did want "a tube down her throat and a machine to help her breathe" if she develops respiratory failure and "chest compressions" if her heart stops beating. I also made sure Prakash understood that even if she is made a DNR we could continue to treat her infection. Prakash verbalized his understanding but again indicated that he wished for her to remain a full code. Patient has dysphagis at baseline and is on a pureed diet at the [facility]. Work up in the emergency room revealed marked leukocytosis with wbc at 50,000 with 38 bands, lactic acidosis at 6.4 with procalcitonin at 17.45. UA consistent with infection. chest xray showed no acute abnormalities. iv rocephin was given in the ER. peripheral blood smear showed 2+macrocytosis, platelet clumping, marked leukocytosis with left shift of granulocytic series, which pathologist believes is a leukemoid reaction but need to rule out chronic myeloid leukemia. Over the next few days, the patient's leukocytosis started to improve and her wbc's started to decline. on 08/24/16, blood cultures grew kleb, sensitive to rocephin and meropenum so levaquin was discontinued and rocephin was started. Patient's hgb also dropped and she received 2 units of blood. iron level was also low and she is received iv venofer. occult stool is negative for blood. On 08/25/16, urine output overnight was very low - less than 50 ml. 80 mg of lasix was given iv - this produced approximately 300 ml of urine. pt's weight is up 6 kg over the last 4 days. pt is now minimally responsive with periods of apenic breathing. This is a significant change. Prakash, the patient's POA and SON, gave permission for PICC line placement but this was unsuccessful. Prakash arrived later that afternoon. I had a long talk with Prakash that afternoon both by myself and with Dr. Rollins (general surgery) and explained that despite our best efforts in medical care that his mother was nearing end of life - especially given the breathing pattern that she was exhibiting currently. Prakash Bullock, the POA, after talking to both of us, expressed his wishes for everything to be done for his mother and for her to still be a full code. Prakash also wished to have a central line placed and his mother started on supplemental nutrition, such as TPN. on 08/26/16 - over the night pt took a turn for the worst. bp dropped significantly. breathing worsening. son agreed overnight to make pt a DNR/ DNI. I spoke with the son this am and he agrees that the end is near and he is ready to make the pt comfort cares. Objective Objective Narrative: unable to obtain ROS due to patient's condition. - Vitals Vitals: Last Vital Signs Temp 37.0 C 08/26/16 08:04 Pulse 100 08/26/16 08:15 Resp 32 H 08/26/16 08:04 BP 69/37 08/26/16 08:04 Pulse Ox 91 08/26/16 08:04 - Abnormal Lab Findings Abnormal Lab Findings: Abnormal Lab Results 08/25/16 Range/Units 05:05 Phosphorus 2.0 L D (2.2-4.2) mg/dL - Exam Constitutional: Present: Other - unresponsive, Elderly ENT Exam: Present: dry mucous membranes Neck: Present: supple Breasts: Present: Exam deferred Respiratory: Present: respiratory distress, crackles, rales, other - see-saw respirations. Cardiovascular/Chest: Present: regular rate, rhythm, tachycardia Abdomen: Present: soft, nontender /Rectal: Present: Exam deferred Extremity: Present: lower extremity edema, pedal edema, slow capillary refill, swelling Skin Exam: Present: mottled, pallor Neurologic: Present: other - unresponsive Cauti Physician Documentation - Urinary Catheter Management Uretheral (Turner) Urethral Indwelling: Yes Reason for Continuing Indwelling Catheter: End of life care Date of Insertion: 08/21/16 Time of Insertion: 16:00 Assessment/Plan Plan Narrative: pt has reached end of life. pupils are non-reactive. see-saw respirations noted. sbp 50-60s. son (MARILIN) is ready to have comfort cares for his mother. orders entered. support provided. - Problems/Diagnosis (1) Severe sepsis Problem: Acute (2) Hypertension Problem: Chronic Qualifiers: Hypertension type: essential hypertension Qualified Code(s): I10 - Essential (primary) hypertension (3) Leukemoid reaction Problem: Acute (4) Bandemia Problem: Acute (5) Intravascular volume depletion Problem: Acute (6) Elevated serum glucose with glucosuria Problem: Acute (7) UTI (urinary tract infection) Problem: Acute Qualifiers: Urinary tract infection type: acute cystitis Hematuria presence: with hematuria Qualified Code(s): N30.01 - Acute cystitis with hematuria (8) Fever Problem: Acute Qualifiers: Fever type: unspecified Qualified Code(s): R50.9 - Fever, unspecified (9) Hyperglycemia Problem: Acute (10) Leukocytosis Problem: Acute Qualifiers: Leukocytosis type: lymphocytosis Qualified Code(s): D72.820 - Lymphocytosis (symptomatic) (11) Status post CVA Problem: Chronic (12) Seizure disorder Problem: Chronic (13) Aspiration pneumonia Problem: Suspected Qualifiers: Aspiration pneumonia type: unspecified Laterality: unspecified laterality Lung location: unspecified part of lung Qualified Code(s): J69.0 - Pneumonitis due to inhalation of food and vomit (14) Dysphagia Problem: Chronic Qualifiers: Dysphagia type: unspecified Qualified Code(s): R13.10 - Dysphagia, unspecified (15) Anemia Problem: Acute Qualifiers: Anemia type: iron deficiency (16) Bacteremia Problem: Acute (17) End of life care Problem: Acute
--- NOTE | 2016-08-26 10:21 | DS ---
(1) Severe sepsis Problem: Acute (2) Hypertension Problem: Chronic Qualifiers: Hypertension type: essential hypertension Qualified Code(s): I10 - Essential (primary) hypertension (3) Leukemoid reaction Problem: Acute (4) Bandemia Problem: Acute (5) Intravascular volume depletion Problem: Acute (6) Elevated serum glucose with glucosuria Problem: Acute (7) UTI (urinary tract infection) Problem: Acute Qualifiers: Urinary tract infection type: acute cystitis Hematuria presence: with hematuria Qualified Code(s): N30.01 - Acute cystitis with hematuria (8) Fever Problem: Acute Qualifiers: Fever type: unspecified Qualified Code(s): R50.9 - Fever, unspecified (9) Hyperglycemia Problem: Acute (10) Leukocytosis Problem: Acute Qualifiers: Leukocytosis type: lymphocytosis Qualified Code(s): D72.820 - Lymphocytosis (symptomatic) (11) Status post CVA Problem: Chronic (12) Seizure disorder Problem: Chronic (13) Aspiration pneumonia Problem: Suspected Qualifiers: Aspiration pneumonia type: unspecified Laterality: unspecified laterality Lung location: unspecified part of lung Qualified Code(s): J69.0 - Pneumonitis due to inhalation of food and vomit (14) Dysphagia Problem: Chronic Qualifiers: Dysphagia type: unspecified Qualified Code(s): R13.10 - Dysphagia, unspecified (15) Anemia Problem: Acute Qualifiers: Anemia type: iron deficiency (16) Bacteremia Problem: Acute (17) End of life care Problem: Acute Description of Stay: Bhavana is an 86 year old female who was admitted with severe sepsis and marked leukocytosis. she was started on iv merropenum and iv levaquin. blood cultures were positive and urine was positive. iron panel was low and patient was started on iv iron during her stay. hgb dropped and she received a blood transfusion during the admission. final blood cultures came back sensitve to merropenum and rocephin and thus levaquin was stopped and rocephin was started. despite our best medical effort, the patient started to detoriate on saturday evening and night. on 08/25/16 the patient developed chaynes-scales respirations and had minimal urine output despite 2 doses of 80 mg iv lasix. she also developed signs of significant fluid overload. on 3/26/17, the patient had see-saw respirations, non-reactive pupils, no additional urine output. son (lin) arrived and after talking decided to make pt comfort cares. pt was given iv ativan for comfort. pt then at 0942. Procedures Performed: see notes below List Procedures: 1) Attempted PICC line placement by anesthesia - unsuccessful. 2) attempted central line by general surgery - unsuccessful. Discharge Disposition: [facility] Home Disposition: Other health care facility Condition: Referrals: Estevan Luz MD [Primary Care Provider] - Complete Home Medications List: Complete Home Medication List: Atropine Sulfate [Atropine 1% Ophthalmic Solution] 4 drop SL Q4H PRN 05/20/13 Divalproex Sodium [Depakote] 500 mg PO DAILY 05/20/13 Phenytoin [Dilantin Suspension] 125 mg PO BID 05/20/13 QUEtiapine FUMARATE [Seroquel] 12.5 mg PO HS 05/20/13 Spironolactone 25 mg PO BID 05/20/13 Atropine Sulfate [Atropine 1% Ophthalmic Solution] 4 drop SL AC 02/03/16 Acetaminophen [Tylenol] 500 mg PO Q6H PRN 08/21/16 Aspirin [Aspirin EC] 81 mg PO DAILY 08/21/16 Omeprazole [Prilosec] 20 mg PO DAILY 08/21/16 Simvastatin 20 mg PO DAILY 08/21/16 Ursodiol [Actigall] 300 mg PO BID 08/21/16
[2016-08-26] MEDS ORDERED: POTASSIUM PHOS,M-BASIC-D-BASIC 18 MM, ELECTROLYTE SOLUTION,INJ 20 ML, MULTIVIT INFUSN,A... IV SCH ×6 (15:00)
[2016-08-26] MEDS ORDERED: INSULIN LISPRO 100 UNITS/ML VIAL SC SCH (16:00)
== END 2016-08-26 10:44 | disposition expired | DRG 871 ==
LOC: ER 10:12 → MS 13:02 → SCU 08-26 07:45 → MS 08-26 09:44
PROVIDERS: ADMIT Nurse Practitioner Critical Care Medicine; ATTEND Internal Medicine
PROC: 4A033R1 Measurement of Arterial Saturation, Peripheral, Percutaneous Approach (ICD-10-PCS; principal; 2016-08-21)
DX: A41.50 Gram-negative sepsis, unspecified (principal); J69.0 Pneumonitis due to inhalation of food and vomit; N30.01 Acute cystitis with hematuria; J80 Acute respiratory distress syndrome; R65.20 Severe sepsis without septic shock; I10 Essential (primary) hypertension; D72.820 Lymphocytosis (symptomatic); I69.991 Dysphagia following unspecified cerebrovascular disease; R13.10 Dysphagia, unspecified; D72.823 Leukemoid reaction; D50.9 Iron deficiency anemia, unspecified; E86.9 Volume depletion, unspecified; Z79.82 Long term (current) use of aspirin
CPT/HCPCS: 36415; 36416; 71010; 76604; 80053; 81001; 82248; 82272; 82465; 82803; 83540; 83550; 83605; 83735; 84100; 84145; 84478; 85007; 85014; 85018; 85025; 85045; 86850; 86900; 87040; 87077; 87081; 87086; 87186; 92526; 92610; 93005; 94640; 96365; 99283; P9016